=== PATIENT | male | born 1965 | race Caucasian/White ===

== ENCOUNTER 2019-02-13 15:06 | Inpatient (IN) | payer BC ==
--- NOTE | 2019-02-13 15:47 | ER Document Report ---
ED Medical Screen (RME) - General Chief Complaint: Abdominal Pain Stated Complaint: ABDOMINAL PAIN Time Seen by Provider: 02/13/19 15:38 Primary Care Provider: JUSTIN HUERTA [Primary Care Provider] - Follow up as needed Mode of Arrival: Ambulatory Information source: Patient Notes: 53-year-old male presented to ED for gallstones with obstructions to the bile ducts. He did get a ultrasound done with an ultrasound gallstones. Dates he has been nauseated but has not vomited. He went to his primary care doctor they madeline blood and did the ultrasound and then sent him to the emergency room. I have greeted and performed a rapid initial assessment of this patient. A comprehensive ED assessment and evaluation of the patient, analysis of test results and completion of medical decision making process will be conducted by an additional ED providers. - Related Data Allergies/Adverse Reactions: Penicillins Allergy (Verified 02/13/19 15:36) Physical Exam - Vital signs Vitals: Temp Pulse Resp BP Pulse Ox 98.6 F 89 16 140/82 H 100 02/13/19 15:28 02/13/19 15:28 02/13/19 15:28 02/13/19 15:28 02/13/19 15:28 Course - Vital Signs Vital signs: Temp Pulse Resp BP Pulse Ox 98.6 F 89 16 140/82 H 100 02/13/19 15:28 02/13/19 15:28 02/13/19 15:28 02/13/19 15:28 02/13/19 15:28 Doctor's Discharge - Discharge Referrals: JUSTIN HUERTA [Primary Care Provider] - Follow up as needed
[2019-02-13] MEDS ORDERED: ONDANSETRON 4 MG TAB.RAPDIS PO ONE (15:49)
[2019-02-13] MEDS ORDERED: ONDANSETRON 4 MG TAB.RAPDIS ONE (15:55)
[2019-02-13 16:23] LABS: ABSOLUTE EOSINOPHILS # (AUTO) 0.1 10^3/uL (0.0-0.6); ABSOLUTE LYMPHOCYTES (AUTO) 1.5 10^3/uL (0.5-4.7); ABSOLUTE MONOCYTES (AUTO) 0.9 10^3/uL (0.1-1.4); ABSOLUTE NEUT (AUTO) 7.6 10^3/uL (1.7-8.2); BASOPHILS % (AUTO) 0.4 % (0-2); EOSINOPHILS % (AUTO) 0.6 % (0-6); HEMATOCRIT 45.1 % (37.9-51.0); HEMOGLOBIN 15.6 g/dL (13.5-17.0); LYMPHOCYTES % (AUTO) 14.6 % (13-45); MEAN CORPUSCULAR HEMOGLOBIN 30.7 pg (27.0-33.4); MEAN CORPUSCULAR HGB CONC 34.6 g/dL (32.0-36.0); MEAN CORPUSCULAR VOLUME 89 fl (80-97); MONOCYTES % (AUTO) 9.3 % (3-13); PLATELET COUNT 252 10^3/uL (150-450); RED BLOOD COUNT 5.08 10^6/uL (4.35-5.55); RED CELL DISTRIBUTION WIDTH 12.5 % (11.5-14.0); SEGMENTED NEUTROPHILS % (AUTO) 75.1 % (42-78); TOTAL CELLS COUNTED % (AUTO) 100 %; WHITE BLOOD COUNT 10.1 10^3/uL (4.0-10.5)
[2019-02-13 16:34] LABS: APPEARANCE,URINE CLEAR; BILIRUBIN,URINE NEGATIVE (NEGATIVE); COLOR,URINE YELLOW; GLUCOSE, URINE 150 mg/dL (NEGATIVE); KETONES,URINE 20 mg/dL (NEGATIVE); PROTEIN,URINE NEGATIVE (NEGATIVE); URINE SPECIFIC GRAVITY 1.026; UROBILINOGEN,URINE NEGATIVE mg/dL (<2.0)
[2019-02-13 16:41] LABS: ALBUMIN 4.7 g/dL (3.5-5.0); ALKALINE PHOSPHATASE 47 U/L (38-126); ANION GAP 14 (5-19); ASPARTATE AMINO TRANSFERASE 27 U/L (17-59); BILIRUBIN,DIRECT 0.1 mg/dL (0.0-0.4); BLOOD UREA NITROGEN 20 mg/dL (7-20); CARBON DIOXIDE 26 mmol/L (22-30); CHLORIDE 100 mmol/L (98-107); GLUCOSE 140 mg/dL (75-110); TOTAL PROTEIN 7.9 g/dL (6.3-8.2)
[2019-02-13] MEDS ORDERED: MORPHINE SULFATE 10 MG/ML INJ IV ONE (17:37)
[2019-02-13] MEDS ORDERED: NORMAL SALINE 1000 ML 1,000 ML IV ONE (17:45)
--- NOTE | 2019-02-13 17:53 | ER Document Report ---
ED General - General Chief Complaint: Abdominal Pain Stated Complaint: ABDOMINAL PAIN Time Seen by Provider: 02/13/19 15:38 Primary Care Provider: JUSTIN HUERTA [Primary Care Provider] - Follow up as needed Mode of Arrival: Ambulatory Information source: Patient, Relative TRAVEL OUTSIDE OF THE [place] IN LAST 30 DAYS: No - HPI Notes: 53-year-old male with history of mild hypertension and gout with a chief complaint of abdominal pain and nausea. Patient was in his usual state of health when he became ill 4 days ago. Since then he has had some anorexia and right upper quadrant abdominal pain associated with nausea but no vomiting. He denies fever chills. He saw his primary care provider earlier today and I suspected a problem with his gallbladder and sent for an outpatient ultrasound. This showed gallbladder wall thickening and a solitary stone which appears to be impacted in the gallbladder neck. He was referred to the emergency department. Presently describes his pain as 8/10. He had taken 1 Percocet which was a dministered to him at his primary care provider's office earlier. Onset 4 days ago. Duration persistent. Quality dull and aching. Location right upper quadrant abdomen. Radiation to right infrascapular area. Precipitating factors none area Relieving factors none. Severity 8/10. Pertinent prior history: No known prior history of gallbladder or biliary tract disease. No prior major surgery. - Related Data Allergies/Adverse Reactions: Penicillins Allergy (Verified 02/13/19 15:36) Past Medical History - General Information source: Patient - Social History Smoking Status: Never Smoker Chew tobacco use (# tins/day): No Frequency of alcohol use: Occasional Drug Abuse: None Family History: Other - Daughter with a history of gallstones. Patient has suicidal ideation: No Patient has homicidal ideation: No - Past Medical History Cardiac Medical History: Reports: Hx Hypertension Other: History of gout Review of Systems - Review of Systems Notes: Constitutional: Negative for fever. HENT: Negative for sore throat. Eyes: Negative for visual changes. Cardiovascular: Negative for chest pain. Respiratory: Negative for shortness of breath. Gastrointestinal: As per HPI. Genitourinary: Negative for dysuria. Musculoskeletal: Negative for back pain. Skin: Negative for rash. Neurological: Negative for headaches, weakness or numbness. 10 point ROS negative except as marked above and in HPI. Physical Exam - Vital signs Vitals: Temp Pulse Resp BP Pulse Ox 98.6 F 89 16 140/82 H 100 02/13/19 15:28 02/13/19 15:28 02/13/19 15:28 02/13/19 15:28 02/13/19 15:28 Notes: GENERAL: Well-developed well-nourished appearing in moderate discomfort. SKIN: Good turgor no rashes. HEAD: Normocephalic atraumatic. EYES: PERRLA. Conjunctivae and sclerae clear. EARS: CANALS AND TMS CLEAR. NOSE: CLEAR. MOUTH: Moist mucosa. Good dentition. No stridor or edema. No drooling. NECK: Supple. No masses or thyromegaly. No adenopathy. Carotids 2+ without bruits. No JVD. BACK: Symmetrical without tenderness. CHEST: Respirations unlabored. Breath sounds clear and symmetrical. HEART: Regular rhythm. No murmur gallop or rub. ABDOMEN: Soft mild tenderness of right upper quadrant without masses, organomegaly or rebound. Bowel sounds normally active. No bruits. GENITALIA: Deferred. EXTREMITIES: No edema. No calf tenderness. Cap refill less than 1.5 seconds. Dorsalis pedis and posterior tibial pulses 3+ and symmetrical. NEUROLOGICAL: GCS 15. Alert and oriented x3. Normal gait. Fluent speech. Cranial nerves II through XII intact. Sensorimotor and cerebellar normal. Normal tone. Course - Re-evaluation Re-evalutation: 02/13/19 17:52 Gallbladder ultrasound suggested this man has cystitis and this fits clinically. He has a history of penicillin allergy. I started him on IV Cipro and metronidazole. We will give him some morphine for pain keep him n.p.o. with administration of IV normal saline. Surgical consultation requested with Dr. Garzon. - Vital Signs Vital signs: Temp Pulse Resp BP Pulse Ox 98.6 F 89 16 140/82 H 100 02/13/19 15:28 02/13/19 15:28 02/13/19 15:28 02/13/19 15:28 02/13/19 15:28 - Laboratory Result Diagrams: 02/13/19 16:04 02/13/19 16:04 Laboratory results interpreted by me: 02/13/19 02/13/19 16:04 16:04 Creatinine 1.29 H Est GFR (MDRD) Non-Af 58 L Glucose 140 H Urine Glucose (UA) 150 H Urine Ketones 20 H - Diagnostic Test Radiology reviewed: Reports reviewed Discharge - Discharge Clinical Impression: Acute cholecystitis due to biliary calculus Condition: Good Disposition: ADMITTED INPATIENT Admitting Provider: Surgicalist Unit Admitted: Surgical Floor Referrals: LOCALMD,NO [Primary Care Provider] - Follow up as needed
[2019-02-13] MEDS ORDERED: CIPROFLOXACIN 400 MG/D5W RTU 400 MG/200 ML RTUPB IV SCH (18:00)
[2019-02-13] MEDS ORDERED: METRONIDAZOLE 500 MG/NS RTU 500 MG/100 ML RTUPB IV ONE (18:00)
[2019-02-13] MEDS ORDERED: ONDANSETRON HCL INJ/PF 4 MG/2 ML SDV IV PRN (18:30)
[2019-02-13] MEDS ORDERED: DEXTROSE 5%-LACTATED RINGERS 1,000 ML IV PRN (18:30)
--- NOTE | 2019-02-13 18:30 | PDOC H&P ---
History of Present Illness Admission Date/PCP: 02/13/19 18:12 WILDER BOOGIE Patient complains of: Abdominal pains History of Present Illness: STEFFANY SEO is a 53 year old male with known hypertension started complaining of right upper quadrant pains about 3 days ago after a fatty meal. Pains primarily along the right lower quadrant but goes to the upper abdomen into the back with some nausea. He went to urgent care center this morning and sent for an ultrasound which showed gallstones with evidence of acute cholecystitis. Patient denies any fever nor chills. Past Medical History Cardiac Medical History: Reports: Hypertension Past Surgical History Past Surgical History: Reports: None Social History Smoking Status: Never Smoker Electronic Cigarette use?: No Family History Family History: Other - Daughter with a history of gallstones. Parental Family History Reviewed: Yes Children Family History Reviewed: No Sibling(s) Family History Reviewed.: No Medication/Allergy Home Medications: Febuxostat [Uloric 80 mg Tablet] 80 mg PO BID 02/13/19 Lisinopril [Prinivil 5 mg Tablet] 5 mg PO DAILY 02/13/19 Allergies/Adverse Reactions: Penicillins Allergy (Verified 02/13/19 15:36) Review of Systems Constitutional: PRESENT: as per HPI Eyes: PRESENT: other - No visual or hearing changes Cardiovascular: PRESENT: other - No chest pains nor cough Gastrointestinal: PRESENT: abdominal pain, nausea Physical Exam Vital Signs: Temp Pulse Resp BP Pulse Ox 98.6 F 89 16 140/82 H 100 02/13/19 15:28 02/13/19 15:28 02/13/19 15:28 02/13/19 15:28 02/13/19 15:28 Intake & Output 02/12/19 02/13/19 02/14/19 06:59 06:59 06:59 Weight 95.5 kg General appearance: PRESENT: mild distress Head exam: PRESENT: atraumatic Mouth exam: PRESENT: moist Neck exam: PRESENT: full ROM Respiratory exam: PRESENT: clear to auscultation tiki Cardiovascular exam: PRESENT: RRR Pulses: PRESENT: normal radial pulses Vascular exam: PRESENT: normal capillary refill GI/Abdominal exam: PRESENT: soft, tenderness - Right upper quadrant Rectal exam: PRESENT: deferred Neurological exam: PRESENT: alert, oriented to person, oriented to place, oriented to time, oriented to situation Psychiatric exam: PRESENT: appropriate affect Skin exam: PRESENT: normal color, warm Results Laboratory Results: 02/13/19 16:04 02/13/19 16:04 02/13/19 02/13/19 02/13/19 16:04 16:04 16:04 WBC 10.1 RBC 5.08 Hgb 15.6 Hct 45.1 MCV 89 MCH 30.7 MCHC 34.6 RDW 12.5 Plt Count 252 Seg Neutrophils % 75.1 Sodium 140.1 Potassium 4.0 Chloride 100 Carbon Dioxide 26 Anion Gap 14 BUN 20 Creatinine 1.29 H Est GFR ( Amer) > 60 Glucose 140 H Calcium 10.0 Total Bilirubin 1.0 AST 27 Alkaline Phosphatase 47 Total Protein 7.9 Albumin 4.7 Lipase 149.8 Urine Color YELLOW Urine Appearance CLEAR Urine pH 6.0 Ur Specific [place] 1.026 Urine Protein NEGATIVE Urine Glucose (UA) 150 H Urine Ketones 20 H Urine Blood NEGATIVE Urine RBC (Auto) 1 Assessment & Plan - Diagnosis (1) Acute cholecystitis Is this a current diagnosis for this admission?: Yes (2) Cholelithiasis Is this a current diagnosis for this admission?: Yes (3) Hypertension Is this a current diagnosis for this admission?: Yes - Time Time Spent: 30 to 50 Minutes - Inpatient Certification Medical Necessity: Need For IV Fluids, Need for Pain Control, Need for IV Antibiotics, Need for Surgery - Plan Summary Plan Summary: 53-year-old male with right upper quadrant pains and ultrasound noted gallstones with acute cholecystitis. Denies any fever no chills. He is tender in the right upper quadrant. He has mild hypertension. Plans: Start IV antibiotics and keep n.p.o. from midnight For laparoscopic cholecystectomy tomorrow
--- NOTE | 2019-02-13 18:48 | RADIOLOGY REPORT (SQ) ---
EXAM DESCRIPTION: U/S ABDOMEN LIMITED W/O DOP COMPLETED DATE/TIME: 02/13/2019 5:37 pm REASON FOR STUDY: gallstones COMPARISON: None. TECHNIQUE: Dynamic and static grayscale images acquired of the abdomen and recorded on PACS. Additio quinton selected color Doppler and spectral images recorded. LIMITATIONS: None. FINDINGS: PANCREAS: No masses. Visualized pancreatic duct normal caliber. LIVER: Diffuse increased echogenicity coarsened echotexture. LIVER VASCULATURE: Normal directional flow of the main portal vein and hepatic veins. GALLBLADDER: Several shadowing gallstones the largest of which measures 1.6 cm at the neck. Positive sonographic Austin's. Normal wall thickness. No pericholecystic fluid. ULTRASOUND-DETECTED AUSTIN'S SIGN: Negative. INTRAHEPATIC DUCTS AND COMMON DUCT: CBD and intrahepatic ducts normal caliber. No filling defects. INFERIOR VENA CAVA: Normal flow. AORTA: No aneurysm. RIGHT KIDNEY: Normal size. Normal echogenicity. No solid or suspicious masses. No hydronephrosis. No calcifications. PERITONEAL AND RIGHT PLEURAL SPACE: No ascites or effusions. OTHER: No other significant findings. IMPRESSION: Cholelithiasis. Cannot exclude acute cholecystitis due to a positive sonographic Austin 's. Hepatic steatosis. TECHNICAL DOCUMENTATION: JOB ID: [id number] [employer]- All Rights Reserved Reading location - IP/workstation name: [email or web address]
--- NOTE | 2019-02-13 18:49 | RADIOLOGY REPORT (SQ) ---
EXAM DESCRIPTION: CHEST SINGLE VIEW COMPLETED DATE/TIME: 02/13/2019 6:15 pm REASON FOR STUDY: preop COMPARISON: None. EXAM PARAMETERS: NUMBER OF VIEWS: One view. TECHNIQUE: Single frontal radiographic view of the chest acquired. RADIATION DOSE: NA LIMITATIONS: None. FINDINGS: LUNGS AND PLEURA: No opacities, masses or pneumothorax. No pleural effusion. MEDIASTINUM AND HILAR STRUCTURES: No masses. Contour normal. HEART AND VASCULAR STRUCTURES: Heart normal in size. Normal vasculature. BONES: No acute findings. HARDWARE: None in the chest. OTHER: No other significant finding. IMPRESSION: NO ACUTE RADIOGRAPHIC FINDING IN THE CHEST. TECHNICAL DOCUMENTATION: JOB ID: [id number] [employer]- All Rights Reserved Reading location - IP/workstation name: [email or web address]
[2019-02-13] MEDS: METRONIDAZOLE 500 MG/NS RTU 500 MG/100 ML RTUPB IV SCH (21:46)
[2019-02-13] MEDS ORDERED: METRONIDAZOLE 500 MG/NS RTU 250 MG in CONTAINER,EMPTY 1 EACH IV SCH ×2 (22:00)
[2019-02-13] MEDS: HYDROMORPHONE HCL INJ/PF 2 MG/ML AMPULE IV PRN (22:00)
[2019-02-13] MEDS: CIPROFLOXACIN 400 MG/D5W RTU 400 MG/200 ML RTUPB IV SCH (23:01)
--- NOTE | 2019-02-13 23:37 | EKG REPORT ---
SEVERITY:- ABNORMAL ECG - SINUS RHYTHM FIRST DEGREE AV BLOCK BORDERLINE INFERIOR Q WAVES : Confirmed by: Abi Chavez 13-Feb-2019 23:36:08
[2019-02-14] MEDS: HYDROMORPHONE HCL INJ/PF 2 MG/ML AMPULE IV PRN ×2 (02:05→06:23)
[2019-02-14] MEDS: METRONIDAZOLE 500 MG/NS RTU 500 MG/100 ML RTUPB IV SCH ×3 (06:22→21:11)
[2019-02-14] MEDS: CIPROFLOXACIN 400 MG/D5W RTU 400 MG/200 ML RTUPB IV SCH ×2 (09:25→21:10)
[2019-02-14] MEDS ORDERED: BUPIVACAINE HCL 0.5 % INJ/PF 30 ML SDV ONE (11:45)
[2019-02-14] MEDS ORDERED: MIDAZOLAM 2 MG/2 ML INJ ONE (12:05)
[2019-02-14] MEDS ORDERED: HYDROMORPHONE HCL INJ/PF 2 MG/ML AMPULE ONE ×2 (12:05→15:07)
[2019-02-14] MEDS ORDERED: PROPOFOL INJ 200 MG/20 ML VIAL IV ONE ×2 (12:05→16:25)
[2019-02-14] MEDS ORDERED: MEPERIDINE HCL/PF INJ 25 MG/1 ML DISP.SYRIN IV PRN (12:45)
[2019-02-14] MEDS ORDERED: OXYCODONE-ACETAMINOPHEN 5-325 MG TABLET PO PRN ×2 (12:45)
[2019-02-14] MEDS ORDERED: DIPHENHYDRAMINE HCL 50 MG/ML VIAL IV PRN (12:45)
[2019-02-14] MEDS ORDERED: ONDANSETRON HCL INJ/PF 4 MG/2 ML SDV IV PRN ×2 (12:45→19:00)
[2019-02-14] MEDS ORDERED: PROMETHAZINE HCL INJ 25 MG/1 ML VIAL IV PRN ×2 (12:45)
[2019-02-14] MEDS ORDERED: FENTANYL CITRATE INJ/PF 100 MCG/2 ML AMPUL IV PRN ×3 (12:45)
[2019-02-14] MEDS ORDERED: ROCURONIUM BROMIDE INJ 50 MG/5 ML VIAL IV ONE (13:32)
[2019-02-14] MEDS ORDERED: LIDOCAINE 2% INJ-PF (20 MG/ML) 2 ML AMPUL ONE (13:32)
[2019-02-14] MEDS ORDERED: DEXAMETHASONE SOD PHOSPHATE INJ 4 MG/1 ML VIAL ONE (13:32)
[2019-02-14] MEDS ORDERED: GLYCOPYRROLATE 1 MG/5 ML VIAL ONE (13:32)
[2019-02-14] MEDS ORDERED: ONDANSETRON HCL INJ/PF 4 MG/2 ML SDV ONE ×2 (13:32→16:25)
[2019-02-14] MEDS ORDERED: NEOSTIGMINE METHYLSULFATE 10 MG/10 ML VIAL ONE (13:32)
[2019-02-14] MEDS ORDERED: METOCLOPRAMIDE HCL INJ/PF 10 MG/2 ML SDV ONE (13:32)
[2019-02-14 15:25] LABS: HEMATOCRIT 39.3 % (37.9-51.0); MEAN CORPUSCULAR HEMOGLOBIN 30.5 pg (27.0-33.4); MEAN CORPUSCULAR HGB CONC 34.3 g/dL (32.0-36.0); MEAN CORPUSCULAR VOLUME 89 fl (80-97); PLATELET COUNT 236 10^3/uL (150-450); RED BLOOD COUNT 4.42 10^6/uL (4.35-5.55); RED CELL DISTRIBUTION WIDTH 12.3 % (11.5-14.0); WHITE BLOOD COUNT 11.1 10^3/uL (4.0-10.5)
[2019-02-14 15:33] LABS: HEMOGLOBIN 13.5 g/dL (13.5-17.0)
[2019-02-14] MEDS ORDERED: FUROSEMIDE INJ/PF 40 MG/4 ML SDV ONE (16:24)
--- NOTE | 2019-02-14 18:56 | Operative Report ---
Nonrecallable Operative Report DATE OF SURGERY: 02/14/19 PREOPERATIVE DIAGNOSIS: Symptomatic cholelithiasis POSTOPERATIVE DIAGNOSIS: Symptomatic cholelithiasis, acute on chronic status, bile leak of the right hepatic duct OPERATION: Laparoscopic cholecystectomy, intraoperative cholangiogram SURGEON: GASTON LUNDY ANESTHESIA: Local - 20 mils of 1% lidocaine TISSUE REMOVED OR ALTERED: Gallbladder COMPLICATIONS: Bile leak of the right hepatic duct ESTIMATED BLOOD LOSS: Minimal less than 10 mL INTRAOPERATIVE FINDINGS: Severely acute on chronic inflamed gallbladder acute on chronic findings, purulent gallbladder content PROCEDURE: The procedure was done in the operating room. The patient was placed in a supine position, general anesthesia induced by endotracheal intubation, the abdomen was prepped and draped in usual fashion. An incision was made just above the umbilicus with a #15 blade, the skin was tented with towel clips and a 5 mm port with Optiview adapter and scope was inserted through the abdominal wall into the peritoneal cavity. CO2 pneumoperitoneum was obtained, under direct visualization a 12 mm port was inserted in the epigastrium and to 5 mm ports were placed in the right lateral quadrant of the abdomen under direct visualization. The patient was placed in steep reverse Trendelenburg position, the right side was elevated, the gallbladder fundus was grasped and the gallbladder was elevated and retroflexed; the gallbladder appeared to have acute on chronic inflammation, it was taken, pale, with the greater omentum adherent to it. This was peeled off and divided with cautery until the entire gallbladder was exposed. Do to the thickening of the gallbladder wall, this could not be grasped safely. Therefore, the gallbladder was emptied with a laparoscopic needle connected to a 60 cc syringe and about 30 mL of dark, purulent, bile content were aspirated from the gallbladder. The the cystic neck was identified, grasped, and pulled anterior to the patient's right with exposure of the triangle of Calot. The critical view of safety was obtained by dividing the peritoneal attachments of the gallbladder body both medially and laterally with a hook cautery. The dissection was extended toward the gallbladder body on either side. When this was accomplished, the hook cautery dissection was continued toward the cystic neck which was not fully identified because of the amount of inflammation. An opening was then obtained posterior to the cystic duct and neck which was enlarged with a peanut dissector and with a right angle dissector. Once the critical view of safety was obtained, an attempt was made to dissect the cystic duct with a hook cautery. This dissection could not be completed because of the large amount of inflammation surrounding the cystic duct; however, a space was developed between the cystic duct and cystic artery with a right angle dissector just below the cystic neck. This was then divided with stapler because of the thickening of the tissues. Following this a small amount of leak of bile was noted from the proximal stump of the tissue. An intraoperative cholangiogram was performed by inserting a cholangiogram catheter through the epigastric port into the abdominal cavity, the small opening noted in the tissue following division of the cystic duct was cannulated with a cholangiogram catheter. This was advanced through the opening, the tip balloon was inflated, 50% diluted radiographic contrast was t hen slowly injected through the catheter into the cystic, while live recorded fluoroscopy was obtained. The fluoroscopic cholangiogram images were interpreted, no contrast was noted into the common bile duct or left hepatic duct. Due to these suspicious findings, intraoperative consultation with Dr. Couch was obtained and he will dictate his portion of the procedure. The patient was left intubated under general anesthesia, the abdomen was left prepped and draped, and additional diagnostic procedures and surgery were performed shortly after.
--- NOTE | 2019-02-14 19:11 | PDOC PROGRESS REPORT ---
Subjective Progress Note for:: 02/14/19 Subjective:: Feeling a bit groggy. Reason For Visit: ACUTE CHOLECYSTITIS,CHOLELITHIASIS,HYPERTENSION Physical Exam Vital Signs: Temp Pulse Resp BP Pulse Ox 97.5 F 81 12 126/82 H 99 02/14/19 18:31 02/14/19 18:31 02/14/19 18:31 02/14/19 18:31 02/14/19 18:31 Intake & Output 02/13/19 02/14/19 02/15/19 06:59 06:59 06:59 Intake Total 1024 4700 Output Total 750 Balance 1024 3950 Weight 90.7 kg General appearance: PRESENT: no acute distress, cooperative, well-developed, well-nourished Head exam: PRESENT: atraumatic, normocephalic Additional Comments: NG present. Eye exam: PRESENT: conjunctiva pink, EOMI, PERRLA. ABSENT: scleral icterus Ear exam: PRESENT: normal external ear exam Mouth exam: PRESENT: moist, tongue midline Respiratory exam: PRESENT: clear to auscultation tiki, decreased breath sounds, unlabored Cardiovascular exam: PRESENT: RRR. ABSENT: diastolic murmur, rubs, systolic murmur Vascular exam: PRESENT: normal capillary refill GI/Abdominal exam: PRESENT: normal bowel sounds, soft. ABSENT: distended, guarding, mass, organolmegaly, rebound, tenderness Additonal comments: JENNIFER draining serosanguinous fluid. Insicions dressed sterilly Extremities exam: PRESENT: full ROM Musculoskeletal exam: PRESENT: normal inspection Neurological exam: PRESENT: alert, awake, oriented to person, oriented to place, oriented to time, oriented to situation, CN II-XII grossly intact. ABSENT: motor sensory deficit Psychiatric exam: PRESENT: appropriate affect, normal mood. ABSENT: homicidal ideation, suicidal ideation Skin exam: PRESENT: dry, intact, warm. ABSENT: cyanosis, rash Results Laboratory Results: 02/14/19 15:11 02/13/19 16:04 02/14/19 02/14/19 15:11 15:11 WBC 11.1 H RBC 4.42 Hgb 13.5 D Hct 39.3 MCV 89 MCH 30.5 MCHC 34.3 RDW 12.3 Plt Count 236 Blood Type O NEGATIVE Antibody Screen NEGATIVE Impressions: Abdomen Ultrasound 02/13/19 15:50 IMPRESSION: Cholelithiasis. Cannot exclude acute cholecystitis due to a positive sonographic Austin's. Hepatic steatosis. Chest X-Ray 02/13/19 18:00 IMPRESSION: NO ACUTE RADIOGRAPHIC FINDING IN THE CHEST. Assessment & Plan - Diagnosis (1) Acute cholecystitis due to biliary calculus Is this a current diagnosis for this admission?: Yes Plan: He has undergone a cholecystectomy. During the cholangiography he suffered a bile leak requiring open repair. He underwent nearly 6 hours of surgery and the original post-op plan was to leave him intubated overnight. However he he much better than expected. He was taken to the ICU and after an appropriate recovery time and time to ascertain cardiovascular and surgical stability he was sent to the regular surgical floor. I have had a conversation with him and informed him of the bile leak and need for NG. (2) Hypertension Qualifiers: Hypertension type: essential hypertension Qualified Code(s): I10 - Essential (primary) hypertension Is this a current diagnosis for this admission?: Yes Plan: Controlled - Time Time Spent with patient: 25-34 minutes Level of Care: MEDICAL Medications reviewed and adjusted accordingly: Yes Anticipated discharge: Home Within: within 72 hours - Inpatient Certification Based on my medical assessment, after consideration of the patient's comorbidities, presenting symptoms, or acuity I expect that the services needed warrant INPATIENT care.: Yes I certify that my determination is in accordance with my understanding of Medicare's requirements for reasonable and necessary INPATIENT services [42 CFR 412.3e].: Yes Medical Necessity: Failure to Improve With Outpatient Therapy, Need For IV Fluids, Need for Surgery, Risk of Complication if Not Cared For in Hospital
[2019-02-14] MEDS ORDERED: PHARMACY COMMUNICATION ORDER MC NR (19:15)
[2019-02-14] MEDS ORDERED: METRONIDAZOLE 500 MG/NS RTU 500 MG/100 ML RTUPB IV SCH (19:30)
[2019-02-14] MEDS: ACETAMINOPHEN 1,000 MG/100 ML RTUPB IV SCH (20:51)
[2019-02-14] MEDS: MORPHINE SULFATE 10 MG/ML INJ IV PRN ×2 (20:52→23:10)
[2019-02-14] MEDS: FAMOTIDINE INJ/PF 20 MG/2 ML SDV IV SCH (21:11)
[2019-02-14] MEDS: NORMAL SALINE 1000 ML 1,000 ML IV PRN (21:17)
[2019-02-15] MEDS: MORPHINE SULFATE 10 MG/ML INJ IV PRN ×5 (01:42→20:07)
[2019-02-15] MEDS: ACETAMINOPHEN 1,000 MG/100 ML RTUPB IV SCH ×4 (03:00→20:04)
[2019-02-15] MEDS: METRONIDAZOLE 500 MG/NS RTU 500 MG/100 ML RTUPB IV SCH ×3 (05:19→21:34)
[2019-02-15] MEDS: FAMOTIDINE INJ/PF 20 MG/2 ML SDV IV SCH ×2 (05:21→17:15)
[2019-02-15 06:45] LABS: HEMATOCRIT 36.4 % (37.9-51.0); HEMOGLOBIN 12.5 g/dL (13.5-17.0); MEAN CORPUSCULAR HEMOGLOBIN 30.5 pg (27.0-33.4); MEAN CORPUSCULAR HGB CONC 34.5 g/dL (32.0-36.0); MEAN CORPUSCULAR VOLUME 88 fl (80-97); PLATELET COUNT 203 10^3/uL (150-450); RED BLOOD COUNT 4.12 10^6/uL (4.35-5.55); RED CELL DISTRIBUTION WIDTH 12.5 % (11.5-14.0); WHITE BLOOD COUNT 13.9 10^3/uL (4.0-10.5)
[2019-02-15 07:00] LABS: ALBUMIN 3.2 g/dL (3.5-5.0); ALKALINE PHOSPHATASE 51 U/L (38-126); ANION GAP 7 (5-19); ASPARTATE AMINO TRANSFERASE 439 U/L (17-59); BILIRUBIN,DIRECT 0.3 mg/dL (0.0-0.4); BILIRUBIN,TOTAL 0.8 mg/dL (0.2-1.3); BLOOD UREA NITROGEN 17 mg/dL (7-20); CALCIUM 8.4 mg/dL (8.4-10.2); CARBON DIOXIDE 28 mmol/L (22-30); CHLORIDE 100 mmol/L (98-107); GLUCOSE 119 mg/dL (75-110); POTASSIUM 4.6 mmol/L (3.6-5.0); TOTAL PROTEIN 5.8 g/dL (6.3-8.2)
--- NOTE | 2019-02-15 08:12 | RADIOLOGY REPORT (SQ) ---
EXAM DESCRIPTION: NO CHG FLUORO COMPLETE DATE/TIME: 02/14/2019 6:14 pm REASON FOR STUDY: IOC FINDINGS: Please see combined report for performance of procedure and radiologic supervision and int erpretation. IMPRESSION: Please see combined report for performance of procedure and radiologic supervision and i nterpretation. Reading location - IP/workstation name: [email or web address]
--- NOTE | 2019-02-15 08:12 | RADIOLOGY REPORT (SQ) ---
EXAM DESCRIPTION: CHOLANGIOGRAM OPERATIVE COMPLETED DATE/TIME: 02/14/2019 6:14 pm REASON FOR STUDY: IOC COMPARISON: None. FLUOROSCOPY TIME: 4.1 minutes Spot images saved to PACS. TECHNIQUE: Intra-operative images acquired during surgical procedure to evaluate progress. NUMBER OF IMAGES: 5 LIMITATIONS: None. FINDINGS: Fluoroscopy was provided for intraoperative procedure. Please refer to the operative repo rt further discussion. IMPRESSION: IMAGE(S) OBTAINED DURING PROCEDURE. COMMENT: Quality ID [id number]: Final reports for procedures using fluoroscopy that document radiation exp osure indices, or exposure time and number of fluorographic images (if radiation exposure indices are not available) Please consult full operative report of the attending physician for description of the procedure. TECHNICAL DOCUMENTATION: JOB ID: [id number] [employer]- All Rights Reserved Reading location - IP/workstation name: [email or web address]
--- NOTE | 2019-02-15 08:13 | RADIOLOGY REPORT (SQ) ---
EXAM DESCRIPTION: KUB/ABDOMEN (SINGLE VIEW) COMPLETED DATE/TIME: 02/14/2019 7:52 pm REASON FOR STUDY: Check Placement of NG Tube COMPARISON: None. NUMBER OF VIEWS: One view. TECHNIQUE: Supine radiographic image of the abdomen acquired. LIMITATIONS: None. FINDINGS: BOWEL GAS PATTERN: Gas pattern is nonobstructive. There is contrast throughout the descen ding colon and sigmoid colon. NG tube is in place. CALCIFICATIONS: No suspicious calcifications. SOFT TISSUES: No gross mass or suggestion of organomegaly. HARDWARE: There are surgical clips extending from the right flank across the midline. Drainage tube is in place. BONES: No acute fracture. No worrisome bone lesions. OTHER: No other significant finding. IMPRESSION: Postsurgical changes. NG tube is coiled in the left upper quadrant most likely stomach. Gas pattern is nonspecific. TECHNICAL DOCUMENTATION: JOB ID: [id number] [employer]- All Rights Reserved Reading location - IP/workstation name: [email or web address]
[2019-02-15] MEDS: ENOXAPARIN SODIUM INJ 40 MG/0.4 ML DISP.SYRIN SUBCUT SCH (08:49)
--- NOTE | 2019-02-15 09:47 | Operative Report ---
Nonrecallable Operative Report DATE OF SURGERY: 02/14/19 PREOPERATIVE DIAGNOSIS: bile duct injury POSTOPERATIVE DIAGNOSIS: right hepatic bile duct injury OPERATION: hepaticojejunostomy SURGEON: ALESSIA RILEY 1ST WHITE LEAD GRINDER: GASTON LUNDY ANESTHESIA: GA TISSUE REMOVED OR ALTERED: none COMPLICATIONS: left hepatic duct injury INTRAOPERATIVE FINDINGS: see dictation PROCEDURE: I was called into the room by Dr. Lundy who was performing a cholecystectomy on Dr. Lundy had performed a cholangiogram through what he felt was the stump of the cystic duct and there was no filling of the right hepatic duct therefore there was suspicion that there was a right hepatic duct injury. A Gillis catheter was placed and we proceeded with Miya incision in the right upper quadrant. Using a 10 blade an incision was made from the epigastric port site along the inferior costal margin. Using Bovie cautery we divided the rectus muscle and posterior fashion gain access to the upper abdomen. The falciform ligament was then divided between Padilla clamps and 0 silk ligatures. The Omni retractor was placed for costal retraction. On initial inspection there were number of cecile in the campos hepatis from the Endo SALOME there was some bile leakage from the middle of the staple line. We began our dissection of the bile duct with blunt and sharp dissection to identify the distal end of the bile duct once this was accomplished we slung the bile duct with a vessel loop for retraction it was noted that the patient had a fairly low bifurcation of the right and left hepatic ducts. As we dissected up proximally we noted that there was an injury to the right hepatic duct and that the left hepatic duct appeared to be intact. I therefore placed a cholangiocatheter in the distal bile duct with a Vesseloops long below that for obstruction of the distal bile duct and then is instilled Omnipaque to obtain a cholangiogram which slid up the left hepatic duct well with no evidence of injury by the right hepatic duct did not fill. We therefore retracted the liver cephalad and then completed the cholecystectomy by taking the gallbladder down in a retrograde fashion with Bovie cautery removing the gallbladder obtaining hemostasis of the liver bed with Bovie cautery. Once this was accomplished we get better visualization of the right hepatic duct there was a complete transection of that. The right hepatic duct stump was visualized with small approximately 2-1/2 to 3 mm in diameter and only admitted a very small bakes dilator. It was not completely divided from the distal portion of the right hepatic duct there was still a slight small sliver of tissue that was holding it connected to the common bile duct. We use this for retraction. We cleaned up the edges of the stump of the hepatic duct. And then turned attention to the ligament of Treitz. A point was picked distal from the ligament of Treitz about 30 cm where we divided the small bowel with a SALOME stapler the mesentery between Padilla clamps and 0 silk ties. I then created a defect in the transverse mesocolon and brought the Seferino limb up to the right upper quadrant to lie close to the campos hepatis. We reconnected the distal limb to the alimentary limb about 40 cm distal to the end of the Seferino limb. We closed the mesenteric defect with interrupted 3-0 silk sutures. We then turned attention to the right upper quadrant. A hepaticojejunostomy was then accomplished between the stump of the right duct and the Esferino limb using 3-0 PDS sutures. 5-0 sutures were unavailable. This was done over a small 5 Burkinan red rubber Coy catheter. Once the anastomosis was completed I remove the catheter through a small enterotomy in the distal limb as it was concerning that the catheter would not be able to be removed at a later date and in the hepatic duct was so small that the catheter was too tight to self eliminate. We closed the small enterotomy to remove the catheter from with interrupted 2-0 silk. Once this was completed we irrigated the abdominal cavity normal saline suctioned dry hemostasis was intact. A Hank-Bobo drain was left in the right upper quadrant in the campos hepatis and brought out through a stab wound in the right abdominal wall. The hepatic anastomosis was then sprayed with Tisseel tissue sealant. The Miya incision was then closed in 2 layers using running 0 PDS suture in the posterior sheath and then in the anterior sheath. The skin was closed with standard skin clips. Estimated blood loss for this procedure was approximately 200 cc sponge needle counts were correct x2 the patient was awakened in the operating room extubated transferred recovery in stable condition.
--- NOTE | 2019-02-15 10:06 | PDOC PROGRESS REPORT ---
Subjective Progress Note for:: 02/15/19 Subjective:: Patient c/o minimal incisional water, no other complaints Reason For Visit: ACUTE CHOLECYSTITIS,CHOLELITHIASIS,HYPERTENSION Physical Exam Vital Signs: Temp Pulse Resp BP Pulse Ox 98.5 F 90 15 119/76 95 02/15/19 07:30 02/15/19 07:30 02/15/19 07:30 02/15/19 07:30 02/15/19 07:30 Intake & Output 02/14/19 02/15/19 02/16/19 06:59 06:59 06:59 Intake Total 1024 7200 100 Output Total 3350 Balance 1024 3850 100 Weight 90.7 kg 98.8 kg General appearance: PRESENT: no acute distress Head exam: PRESENT: atraumatic Respiratory exam: PRESENT: clear to auscultation tiki Cardiovascular exam: PRESENT: RRR GI/Abdominal exam: PRESENT: hypoactive bowel sounds, soft, other - RUQ wound C/D/I, JENNIFER drain in R Lateral abdomen with bious content Results Laboratory Results: 02/15/19 05:40 02/15/19 05:40 02/14/19 02/14/19 02/15/19 15:11 15:11 05:40 WBC 11.1 H 13.9 H RBC 4.42 4.12 L Hgb 13.5 D 12.5 L Hct 39.3 36.4 L MCV 89 88 MCH 30.5 30.5 MCHC 34.3 34.5 RDW 12.3 12.5 Plt Count 236 203 Sodium Potassium Chloride Carbon Dioxide Anion Gap BUN Creatinine Est GFR ( Amer) Glucose Calcium Total Bilirubin AST Alkaline Phosphatase Total Protein Albumin Blood Type O NEGATIVE Antibody Screen NEGATIVE 02/15/19 05:40 WBC RBC Hgb Hct MCV MCH MCHC RDW Plt Count Sodium 135.2 L Potassium 4.6 Chloride 100 Carbon Dioxide 28 Anion Gap 7 BUN 17 Creatinine 1.13 Est GFR ( Amer) > 60 Glucose 119 H Calcium 8.4 Total Bilirubin 0.8 AST 439 H Alkaline Phosphatase 51 Total Protein 5.8 L Albumin 3.2 L Blood Type Antibody Screen Impressions: Abdomen Ultrasound 02/13/19 15:50 IMPRESSION: Cholelithiasis. Cannot exclude acute cholecystitis due to a positive sonographic Austin's. Hepatic steatosis. Chest X-Ray 02/13/19 18:00 IMPRESSION: NO ACUTE RADIOGRAPHIC FINDING IN THE CHEST. Cholangiogram 02/14/19 00:00 IMPRESSION: IMAGE(S) OBTAINED DURING PROCEDURE. Fluoroscopy 02/14/19 00:00 IMPRESSION: Please see combined report for performance of procedure and radiologic supervision and interpretation. KUB X-Ray 02/14/19 19:05 IMPRESSION: Postsurgical changes. NG tube is coiled in the left upper quadrant most likely stomach. Gas pattern is nonspecific. Assessment & Plan - Diagnosis (1) Injury of bile duct Qualifiers: Encounter type: initial encounter Qualified Code(s): S36.13XA - Injury of bile duct, initial encounter Is this a current diagnosis for this admission?: Yes (2) Acute cholecystitis due to biliary calculus Is this a current diagnosis for this admission?: Yes (3) Cholelithiasis Qualifiers: Cholelithiasis location: gallbladder Cholecystitis presence: with cholecystitis Cholecystitis acuity: acute and chronic Biliary obstruction: without biliary obstruction Qualified Code(s): K80.12 - Calculus of gallbladder with acute and chronic cholecystitis without obstruction Is this a current diagnosis for this admission?: Yes - Time Time Spent with patient: 25-34 minutes - Plan Summary Plan Summary: Assessment: Postoperative day #1 following attempted laparoscopic cholecystectomy with a right bile duct injury converted to open cholecystectomy and hepatojejunostomy Vital signs stable, patient afebrile Good urine output Moderate amount of drainage from the Hank-Bobo drain bilious in type Mild leukocytosis, most likely reactive Decrease in H&H most likely due to fluid administration and blood loss during surgery Liver profile demonstrates a normal bilirubin with slight elevation of alkaline phosphatase and AST ALT, as per pain possible findings Plan: Continue current therapy N.p.o. and NG tube suction until bowel function returns Incentive spirometer Physical therapy consultation for ambulation twice a day Remove Gillis Continue to monitor blood work and JENNIFER output
[2019-02-15] MEDS: CIPROFLOXACIN 400 MG/D5W RTU 400 MG/200 ML RTUPB IV SCH ×2 (10:52→21:34)
[2019-02-15] MEDS: NORMAL SALINE 1000 ML 1,000 ML IV PRN ×2 (12:08→20:04)
[2019-02-16 00:36] LABS: APPEARANCE,URINE CLEAR; BILIRUBIN,URINE NEGATIVE (NEGATIVE); COLOR,URINE YELLOW; GLUCOSE, URINE NEGATIVE (NEGATIVE); KETONES,URINE TRACE mg/dL (NEGATIVE); LEUKOCYTE ESTERASE,URINE NEGATIVE (NEGATIVE); NITRITE,URINE NEGATIVE (NEGATIVE); PROTEIN,URINE NEGATIVE (NEGATIVE); URINE SPECIFIC GRAVITY 1.026; UROBILINOGEN,URINE NEGATIVE mg/dL (<2.0)
[2019-02-16] MEDS: MORPHINE SULFATE 10 MG/ML INJ IV PRN ×6 (01:14→21:17)
[2019-02-16] MEDS: ACETAMINOPHEN 1,000 MG/100 ML RTUPB IV SCH ×4 (02:25→21:04)
[2019-02-16 05:59] LABS: ABSOLUTE EOSINOPHILS # (AUTO) 0.1 10^3/uL (0.0-0.6); ABSOLUTE LYMPHOCYTES (AUTO) 1.2 10^3/uL (0.5-4.7); ABSOLUTE MONOCYTES (AUTO) 0.9 10^3/uL (0.1-1.4); ABSOLUTE NEUT (AUTO) 8.3 10^3/uL (1.7-8.2); BASOPHILS % (AUTO) 0.4 % (0-2); EOSINOPHILS % (AUTO) 1.1 % (0-6); HEMATOCRIT 34.8 % (37.9-51.0); LYMPHOCYTES % (AUTO) 11.6 % (13-45); MEAN CORPUSCULAR HEMOGLOBIN 30.8 pg (27.0-33.4); MEAN CORPUSCULAR HGB CONC 34.5 g/dL (32.0-36.0); MEAN CORPUSCULAR VOLUME 89 fl (80-97); MONOCYTES % (AUTO) 8.5 % (3-13); PLATELET COUNT 208 10^3/uL (150-450); RED BLOOD COUNT 3.91 10^6/uL (4.35-5.55); RED CELL DISTRIBUTION WIDTH 12.5 % (11.5-14.0); SEGMENTED NEUTROPHILS % (AUTO) 78.4 % (42-78); TOTAL CELLS COUNTED % (AUTO) 100 %; WHITE BLOOD COUNT 10.5 10^3/uL (4.0-10.5)
[2019-02-16] MEDS: METRONIDAZOLE 500 MG/NS RTU 500 MG/100 ML RTUPB IV SCH ×3 (06:22→21:05)
[2019-02-16] MEDS: FAMOTIDINE INJ/PF 20 MG/2 ML SDV IV SCH ×2 (06:22→17:43)
[2019-02-16] MEDS: NORMAL SALINE 1000 ML 1,000 ML IV PRN ×2 (06:27→21:13)
[2019-02-16 06:28] LABS: ALBUMIN 3.1 g/dL (3.5-5.0); ALKALINE PHOSPHATASE 48 U/L (38-126); ANION GAP 8 (5-19); ASPARTATE AMINO TRANSFERASE 219 U/L (17-59); BILIRUBIN,DIRECT 0.4 mg/dL (0.0-0.4); BLOOD UREA NITROGEN 17 mg/dL (7-20); CALCIUM 8.6 mg/dL (8.4-10.2); CARBON DIOXIDE 26 mmol/L (22-30); CHLORIDE 104 mmol/L (98-107); GLUCOSE 105 mg/dL (75-110); POTASSIUM 4.2 mmol/L (3.6-5.0); TOTAL PROTEIN 5.7 g/dL (6.3-8.2)
[2019-02-16] MEDS: ENOXAPARIN SODIUM INJ 40 MG/0.4 ML DISP.SYRIN SUBCUT SCH (08:19)
--- NOTE | 2019-02-16 08:36 | PDOC PROGRESS REPORT ---
Subjective Progress Note for:: 02/16/19 Subjective:: sore throat due to ng Reason For Visit: ACUTE CHOLECYSTITIS,S/P LAP BRENDA,S/P REPAIR OF Physical Exam Vital Signs: Temp Pulse Resp BP Pulse Ox 98.4 F 92 18 120/72 95 02/15/19 23:39 02/15/19 23:39 02/15/19 23:39 02/15/19 23:39 02/15/19 23:39 Intake & Output 02/15/19 02/16/19 02/17/19 06:59 06:59 06:59 Intake Total 7200 3352 100 Output Total 3350 1525 Balance 3850 1827 100 Weight 98.8 kg 94.6 kg General appearance: PRESENT: no acute distress Head exam: PRESENT: normocephalic Eye exam: PRESENT: EOMI Ear exam: PRESENT: normal external ear exam Mouth exam: PRESENT: moist Neck exam: PRESENT: full ROM Respiratory exam: PRESENT: clear to auscultation tiki Cardiovascular exam: PRESENT: RRR Pulses: PRESENT: normal radial pulses, normal femoral pulses GI/Abdominal exam: PRESENT: hypoactive bowel sounds, soft, other - linda bilious. Rectal exam: PRESENT: deferred Extremities exam: PRESENT: full ROM Musculoskeletal exam: PRESENT: full ROM Neurological exam: PRESENT: alert, altered, awake, oriented to person, oriented to place Psychiatric exam: PRESENT: appropriate affect Skin exam: PRESENT: dry - s/p right hepatic duct repair with hepaticojejunostomy still iwth some leak and linda bilious drainage still with ileus with few bowel sounds plan cont current rx cont ng till passing flatus. Results Laboratory Results: 02/16/19 05:10 02/16/19 05:10 02/15/19 02/16/19 02/16/19 23:45 05:10 05:10 WBC 10.5 RBC 3.91 L Hgb 12.0 L Hct 34.8 L MCV 89 MCH 30.8 MCHC 34.5 RDW 12.5 Plt Count 208 Seg Neutrophils % 78.4 H Sodium 138.3 Potassium 4.2 Chloride 104 Carbon Dioxide 26 Anion Gap 8 BUN 17 Creatinine 1.21 Est GFR ( Amer) > 60 Glucose 105 Calcium 8.6 Total Bilirubin 1.0 AST 219 H Alkaline Phosphatase 48 Total Protein 5.7 L Albumin 3.1 L Urine Color YELLOW Urine Appearance CLEAR Urine pH 5.0 Ur Specific [place] 1.026 Urine Protein NEGATIVE Urine Glucose (UA) NEGATIVE Urine Ketones TRACE H Urine Blood NEGATIVE Urine Nitrite NEGATIVE Ur Leukocyte Esterase NEGATIVE Urine WBC (Auto) 1 Urine RBC (Auto) 0 Impressions: Abdomen Ultrasound 02/13/19 15:50 IMPRESSION: Cholelithiasis. Cannot exclude acute cholecystitis due to a positive sonographic Austin's. Hepatic steatosis. Chest X-Ray 02/13/19 18:00 IMPRESSION: NO ACUTE RADIOGRAPHIC FINDING IN THE CHEST. Cholangiogram 02/14/19 00:00 IMPRESSION: IMAGE(S) OBTAINED DURING PROCEDURE. Fluoroscopy 02/14/19 00:00 IMPRESSION: Please see combined report for performance of procedure and radiologic supervision and interpretation. KUB X-Ray 02/14/19 19:05 IMPRESSION: Postsurgical changes. NG tube is coiled in the left upper quadrant most likely stomach. Gas pattern is nonspecific. Assessment & Plan - Time Time Spent with patient: 25-34 minutes
[2019-02-16] MEDS: CIPROFLOXACIN 400 MG/D5W RTU 400 MG/200 ML RTUPB IV SCH ×2 (10:29→21:04)
[2019-02-16] MEDS: BENZOCAINE/MENTHOL SORE THROAT LOZENGE BUCCAL PRN ×4 (13:04→21:17)
[2019-02-17] MEDS: BENZOCAINE/MENTHOL SORE THROAT LOZENGE BUCCAL PRN ×7 (00:05→22:08)
[2019-02-17] MEDS: ACETAMINOPHEN 1,000 MG/100 ML RTUPB IV SCH ×4 (02:41→21:09)
[2019-02-17] MEDS: MORPHINE SULFATE 10 MG/ML INJ IV PRN ×5 (02:41→18:24)
[2019-02-17] MEDS: FAMOTIDINE INJ/PF 20 MG/2 ML SDV IV SCH ×2 (05:38→18:17)
[2019-02-17] MEDS: METRONIDAZOLE 500 MG/NS RTU 500 MG/100 ML RTUPB IV SCH ×3 (05:38→23:23)
[2019-02-17 05:43] LABS: ABSOLUTE EOSINOPHILS # (AUTO) 0.3 10^3/uL (0.0-0.6); ABSOLUTE LYMPHOCYTES (AUTO) 0.9 10^3/uL (0.5-4.7); ABSOLUTE MONOCYTES (AUTO) 0.8 10^3/uL (0.1-1.4); ABSOLUTE NEUT (AUTO) 7.8 10^3/uL (1.7-8.2); BASOPHILS % (AUTO) 0.5 % (0-2); EOSINOPHILS % (AUTO) 2.9 % (0-6); HEMATOCRIT 33.1 % (37.9-51.0); HEMOGLOBIN 11.6 g/dL (13.5-17.0); LYMPHOCYTES % (AUTO) 8.8 % (13-45); MEAN CORPUSCULAR VOLUME 89 fl (80-97); MONOCYTES % (AUTO) 8.3 % (3-13); PLATELET COUNT 211 10^3/uL (150-450); RED BLOOD COUNT 3.74 10^6/uL (4.35-5.55); RED CELL DISTRIBUTION WIDTH 12.6 % (11.5-14.0); SEGMENTED NEUTROPHILS % (AUTO) 79.5 % (42-78); TOTAL CELLS COUNTED % (AUTO) 100 %; WHITE BLOOD COUNT 9.8 10^3/uL (4.0-10.5)
[2019-02-17 06:08] LABS: ALBUMIN 3.1 g/dL (3.5-5.0); ALKALINE PHOSPHATASE 52 U/L (38-126); ANION GAP 8 (5-19); ASPARTATE AMINO TRANSFERASE 120 U/L (17-59); BILIRUBIN,DIRECT 0.2 mg/dL (0.0-0.4); BILIRUBIN,TOTAL 0.6 mg/dL (0.2-1.3); BLOOD UREA NITROGEN 14 mg/dL (7-20); CALCIUM 8.5 mg/dL (8.4-10.2); CARBON DIOXIDE 26 mmol/L (22-30); CHLORIDE 101 mmol/L (98-107); GLUCOSE 109 mg/dL (75-110); POTASSIUM 3.9 mmol/L (3.6-5.0); TOTAL PROTEIN 5.8 g/dL (6.3-8.2)
[2019-02-17] MEDS: ENOXAPARIN SODIUM INJ 40 MG/0.4 ML DISP.SYRIN SUBCUT SCH (08:39)
[2019-02-17] MEDS: CIPROFLOXACIN 400 MG/D5W RTU 400 MG/200 ML RTUPB IV SCH ×2 (09:30→22:09)
--- NOTE | 2019-02-17 09:54 | PDOC PROGRESS REPORT ---
Subjective Progress Note for:: 02/17/19 Subjective:: comfortable, the patient denies flatus or bowel movements, minimal incisional abdominal pain Reason For Visit: ACUTE CHOLECYSTITIS,S/P LAP BRENDA,S/P REPAIR OF Physical Exam Vital Signs: Temp Pulse Resp BP Pulse Ox 97.4 F 81 14 127/74 H 96 02/17/19 07:32 02/17/19 07:32 02/17/19 07:32 02/17/19 07:32 02/17/19 07:32 Intake & Output 02/16/19 02/17/19 02/18/19 06:59 06:59 06:59 Intake Total 3352 2200 100 Output Total 1585 2890 Balance 1767 -690 100 Weight 94.6 kg 93.1 kg General appearance: PRESENT: no acute distress Respiratory exam: PRESENT: clear to auscultation tiki Cardiovascular exam: PRESENT: RRR GI/Abdominal exam: PRESENT: soft, other - Right upper quadrant incision clean, dry, and intact; right lower quadrant abdominal Hank-Bobo drain with serous fluid Skin exam: PRESENT: other - No jaundice noted Results Laboratory Results: 02/17/19 05:23 02/17/19 05:23 02/17/19 02/17/19 05:23 05:23 WBC 9.8 RBC 3.74 L Hgb 11.6 L Hct 33.1 L MCV 89 MCH 31.0 MCHC 35.0 RDW 12.6 Plt Count 211 Seg Neutrophils % 79.5 H Sodium 135.3 L Potassium 3.9 Chloride 101 Carbon Dioxide 26 Anion Gap 8 BUN 14 Creatinine 1.00 Est GFR ( Amer) > 60 Glucose 109 Calcium 8.5 Total Bilirubin 0.6 AST 120 H Alkaline Phosphatase 52 Total Protein 5.8 L Albumin 3.1 L Impressions: Abdomen Ultrasound 02/13/19 15:50 IMPRESSION: Cholelithiasis. Cannot exclude acute cholecystitis due to a positive sonographic Austin's. Hepatic steatosis. Chest X-Ray 02/13/19 18:00 IMPRESSION: NO ACUTE RADIOGRAPHIC FINDING IN THE CHEST. Cholangiogram 02/14/19 00:00 IMPRESSION: IMAGE(S) OBTAINED DURING PROCEDURE. Fluoroscopy 02/14/19 00:00 IMPRESSION: Please see combined report for performance of procedure and radiologic supervision and interpretation. KUB X-Ray 02/14/19 19:05 IMPRESSION: Postsurgical changes. NG tube is coiled in the left upper quadrant most likely stomach. Gas pattern is nonspecific. Assessment & Plan - Diagnosis (1) Injury of bile duct Qualifiers: Encounter type: initial encounter Qualified Code(s): S36.13XA - Injury of bile duct, initial encounter Is this a current diagnosis for this admission?: Yes (2) Acute cholecystitis due to biliary calculus Is this a current diagnosis for this admission?: Yes (3) Cholelithiasis Qualifiers: Cholelithiasis location: gallbladder Cholecystitis presence: with cholecystitis Cholecystitis acuity: acute and chronic Biliary obstruction: without biliary obstruction Qualified Code(s): K80.12 - Calculus of gallbladder with acute and chronic cholecystitis without obstruction Is this a current diagnosis for this admission?: Yes - Time Time Spent with patient: 25-34 minutes - Plan Summary Plan Summary: Assessment: Postoperative day #3 following attempted laparoscopic cholecystectomy and repair of right biliary duct injury Vital signs stable, patient afebrile Good urine output Still elevated Hank-Bobo bilious drainage due to persistence of postoperative ileus: I expect that the amount of drainage from the Hank-Bobo drain will decrease once her bowel function returns No flatus or bowel function reported Blood work within normal limits including liver profile Plan: Continue n.p.o., nasogastric tube, IV fluids Continue IV antibiotics Encourage ambulation hourly to stimulate bowel function return Start Reglan 10 mg IV push every 6 hours Glycerin suppository 1 per rectum twice daily to stimulate the bowel function The nasogastric tube will be removed once bowel function returns
[2019-02-17] MEDS: METOCLOPRAMIDE HCL 10 MG TABLET PO SCH ×2 (11:29→18:17)
[2019-02-17] MEDS: GLYCERIN (ADULT) SUPP.RECT PR SCH ×2 (11:31→18:25)
[2019-02-17] MEDS: NORMAL SALINE 1000 ML 1,000 ML IV PRN (23:23)
[2019-02-18] MEDS: METOCLOPRAMIDE HCL 10 MG TABLET PO SCH ×5 (00:36→23:18)
[2019-02-18] MEDS: BENZOCAINE/MENTHOL SORE THROAT LOZENGE BUCCAL PRN (00:40)
[2019-02-18] MEDS: ACETAMINOPHEN 1,000 MG/100 ML RTUPB IV SCH ×4 (02:45→20:56)
[2019-02-18 05:02] LABS: ABSOLUTE BASOPHILS # (AUTO) 0.1 10^3/uL (0.0-0.2); ABSOLUTE EOSINOPHILS # (AUTO) 0.3 10^3/uL (0.0-0.6); ABSOLUTE LYMPHOCYTES (AUTO) 1.1 10^3/uL (0.5-4.7); ABSOLUTE MONOCYTES (AUTO) 0.9 10^3/uL (0.1-1.4); ABSOLUTE NEUT (AUTO) 7.1 10^3/uL (1.7-8.2); BASOPHILS % (AUTO) 0.5 % (0-2); EOSINOPHILS % (AUTO) 3.5 % (0-6); HEMATOCRIT 31.3 % (37.9-51.0); HEMOGLOBIN 10.8 g/dL (13.5-17.0); LYMPHOCYTES % (AUTO) 11.5 % (13-45); MEAN CORPUSCULAR HEMOGLOBIN 30.5 pg (27.0-33.4); MEAN CORPUSCULAR HGB CONC 34.4 g/dL (32.0-36.0); MEAN CORPUSCULAR VOLUME 89 fl (80-97); MONOCYTES % (AUTO) 9.5 % (3-13); PLATELET COUNT 242 10^3/uL (150-450); RED BLOOD COUNT 3.54 10^6/uL (4.35-5.55); RED CELL DISTRIBUTION WIDTH 12.3 % (11.5-14.0); TOTAL CELLS COUNTED % (AUTO) 100 %; WHITE BLOOD COUNT 9.5 10^3/uL (4.0-10.5)
[2019-02-18 05:13] LABS: ALKALINE PHOSPHATASE 67 U/L (38-126); ANION GAP 9 (5-19); ASPARTATE AMINO TRANSFERASE 83 U/L (17-59); BILIRUBIN,DIRECT 0.2 mg/dL (0.0-0.4); BILIRUBIN,TOTAL 0.6 mg/dL (0.2-1.3); BLOOD UREA NITROGEN 15 mg/dL (7-20); CALCIUM 8.6 mg/dL (8.4-10.2); CARBON DIOXIDE 26 mmol/L (22-30); CHLORIDE 104 mmol/L (98-107); GLUCOSE 105 mg/dL (75-110); POTASSIUM 3.8 mmol/L (3.6-5.0); TOTAL PROTEIN 5.6 g/dL (6.3-8.2)
[2019-02-18] MEDS: METRONIDAZOLE 500 MG/NS RTU 500 MG/100 ML RTUPB IV SCH ×3 (05:25→22:12)
[2019-02-18] MEDS: FAMOTIDINE INJ/PF 20 MG/2 ML SDV IV SCH ×2 (05:25→17:47)
--- NOTE | 2019-02-18 07:23 | PDOC PROGRESS REPORT ---
Subjective Progress Note for:: 02/18/19 Subjective:: Patient is comfortable, he reports passing flatus twice Reason For Visit: ACUTE CHOLECYSTITIS,S/P LAP BRENDA,S/P REPAIR OF Physical Exam Vital Signs: Temp Pulse Resp BP Pulse Ox 98.4 F 80 17 117/71 100 02/18/19 00:05 02/18/19 00:05 02/18/19 00:05 02/18/19 00:05 02/18/19 00:05 Intake & Output 02/17/19 02/18/19 02/19/19 06:59 06:59 06:59 Intake Total 2200 2340 Output Total 2890 1480 Balance -690 860 Weight 93.1 kg General appearance: PRESENT: no acute distress Respiratory exam: PRESENT: clear to auscultation tiki Cardiovascular exam: PRESENT: RRR, systolic murmur GI/Abdominal exam: PRESENT: hypoactive bowel sounds, soft, other - Right upper quadrant incision clean, dry, intact; right lateral abdominal drain site clean w ith drain bulb filled with bilious fluid Results Laboratory Results: 02/18/19 04:06 02/18/19 04:06 02/18/19 02/18/19 04:06 04:06 WBC 9.5 RBC 3.54 L Hgb 10.8 L Hct 31.3 L MCV 89 MCH 30.5 MCHC 34.4 RDW 12.3 Plt Count 242 Seg Neutrophils % 75.0 Sodium 139.1 Potassium 3.8 Chloride 104 Carbon Dioxide 26 Anion Gap 9 BUN 15 Creatinine 0.95 Est GFR ( Amer) > 60 Glucose 105 Calcium 8.6 Total Bilirubin 0.6 AST 83 H Alkaline Phosphatase 67 Total Protein 5.6 L Albumin 3.0 L Impressions: Abdomen Ultrasound 02/13/19 15:50 IMPRESSION: Cholelithiasis. Cannot exclude acute cholecystitis due to a positi ve sonographic Austin's. Hepatic steatosis. Chest X-Ray 02/13/19 18:00 IMPRESSION: NO ACUTE RADIOGRAPHIC FINDING IN THE CHEST. Cholangiogram 02/14/19 00:00 IMPRESSION: IMAGE(S) OBTAINED DURING PROCEDURE. Fluoroscopy 02/14/19 00:00 IMPRESSION: Please see combined report for performance of procedure and radi ologic supervision and interpretation. KUB X-Ray 02/14/19 19:05 IMPRESSION: Postsurgical changes. NG tube is coiled in the left upper quadrant most likely stomach. Gas pattern is nonspecific. Assessment & Plan - Diagnosis (1) Injury of bile duct Qualifiers: Encounter type: initial encounter Qualified Code(s): S36.13XA - Injury of bile duct, initial encounter Is this a current diagnosis for this admission?: Yes (2) Acute cholecystitis due to biliary calculus Is this a current diagnosis for this admission?: Yes (3) Cholelithiasis Qualifiers: Cholelithiasis location: gallbladder Cholecystitis presence: with cholecystitis Cholecystitis acuity: acute and chronic Biliary obstruction: without biliary obstruction Qualified Code(s): K80.12 - Calculus of gallbladder with acute and chronic cholecystitis without obstruction Is this a current diagnosis for this admission?: Yes - Time Time Spent with patient: 15-24 minutes - Plan Summary Plan Summary: Assessment: Postop day #4 following attempted laparoscopic cholecystectomy, open cholecystectomy and repair of right biliary duct injury Vital signs are stable patient afebrile Patient passing flatus Still moderately elevated Hank-Bobo drain output about 500 mm in the past 24 hours CBC and liver profile all within normal limits Physical exam unremarkable Plan: Clamp NG tube for 4 hours If residual less than 100 mL, we will remove nasogastric tube and advance diet to clear liquids
[2019-02-18] MEDS: ENOXAPARIN SODIUM INJ 40 MG/0.4 ML DISP.SYRIN SUBCUT SCH (08:41)
[2019-02-18] MEDS: KETOROLAC TROMETHAMINE INJ/PF 30 MG/1 ML SDV IV PRN (09:05)
[2019-02-18] MEDS: NORMAL SALINE 1000 ML 1,000 ML IV PRN ×2 (09:05→20:30)
[2019-02-18] MEDS: GLYCERIN (ADULT) SUPP.RECT PR SCH ×2 (10:17→17:45)
[2019-02-18] MEDS: CIPROFLOXACIN 400 MG/D5W RTU 400 MG/200 ML RTUPB IV SCH ×2 (10:17→23:19)
[2019-02-19] MEDS: ACETAMINOPHEN 1,000 MG/100 ML RTUPB IV SCH ×3 (02:05→16:10)
[2019-02-19 02:40] LABS: APPEARANCE,URINE CLEAR; BILIRUBIN,URINE NEGATIVE (NEGATIVE); COLOR,URINE YELLOW; GLUCOSE, URINE NEGATIVE (NEGATIVE); KETONES,URINE TRACE mg/dL (NEGATIVE); LEUKOCYTE ESTERASE,URINE TRACE (NEGATIVE); NITRITE,URINE NEGATIVE (NEGATIVE); PROTEIN,URINE NEGATIVE (NEGATIVE); URINE SPECIFIC GRAVITY 1.016; UROBILINOGEN,URINE NEGATIVE mg/dL (<2.0)
[2019-02-19] MEDS: METOCLOPRAMIDE HCL 10 MG TABLET PO SCH ×3 (05:13→18:01)
[2019-02-19] MEDS: METRONIDAZOLE 500 MG/NS RTU 500 MG/100 ML RTUPB IV SCH ×3 (05:14→22:57)
[2019-02-19] MEDS: FAMOTIDINE INJ/PF 20 MG/2 ML SDV IV SCH ×2 (05:14→18:01)
[2019-02-19 05:43] LABS: ABSOLUTE EOSINOPHILS # (AUTO) 0.4 10^3/uL (0.0-0.6); ABSOLUTE MONOCYTES (AUTO) 0.9 10^3/uL (0.1-1.4); ABSOLUTE NEUT (AUTO) 6.1 10^3/uL (1.7-8.2); BASOPHILS % (AUTO) 0.5 % (0-2); EOSINOPHILS % (AUTO) 4.4 % (0-6); HEMATOCRIT 31.3 % (37.9-51.0); HEMOGLOBIN 10.8 g/dL (13.5-17.0); LYMPHOCYTES % (AUTO) 11.4 % (13-45); MEAN CORPUSCULAR HEMOGLOBIN 30.6 pg (27.0-33.4); MEAN CORPUSCULAR HGB CONC 34.6 g/dL (32.0-36.0); MEAN CORPUSCULAR VOLUME 89 fl (80-97); MONOCYTES % (AUTO) 10.8 % (3-13); PLATELET COUNT 264 10^3/uL (150-450); RED BLOOD COUNT 3.54 10^6/uL (4.35-5.55); RED CELL DISTRIBUTION WIDTH 12.5 % (11.5-14.0); SEGMENTED NEUTROPHILS % (AUTO) 72.9 % (42-78); TOTAL CELLS COUNTED % (AUTO) 100 %; WHITE BLOOD COUNT 8.4 10^3/uL (4.0-10.5)
[2019-02-19 06:23] LABS: ALBUMIN 2.8 g/dL (3.5-5.0); ALKALINE PHOSPHATASE 75 U/L (38-126); ANION GAP 7 (5-19); ASPARTATE AMINO TRANSFERASE 87 U/L (17-59); BILIRUBIN,DIRECT 0.3 mg/dL (0.0-0.4); BILIRUBIN,TOTAL 0.6 mg/dL (0.2-1.3); BLOOD UREA NITROGEN 15 mg/dL (7-20); CALCIUM 8.5 mg/dL (8.4-10.2); CARBON DIOXIDE 25 mmol/L (22-30); CHLORIDE 107 mmol/L (98-107); GLUCOSE 98 mg/dL (75-110); POTASSIUM 3.9 mmol/L (3.6-5.0); TOTAL PROTEIN 5.2 g/dL (6.3-8.2)
--- NOTE | 2019-02-19 07:29 | PDOC PROGRESS REPORT ---
Subjective Progress Note for:: 02/19/19 Subjective:: feels much better with ng out having bm's Reason For Visit: ACUTE CHOLECYSTITIS,S/P LAP BRENDA,S/P REPAIR OF Physical Exam Vital Signs: Temp Pulse Resp BP Pulse Ox 98.7 F 79 15 135/73 H 98 02/18/19 23:43 02/18/19 23:43 02/18/19 23:43 02/18/19 23:43 02/18/19 23:43 Intake & Output 02/18/19 02/19/19 02/20/19 06:59 06:59 06:59 Intake Total 2340 3860 Output Total 1480 480 Balance 860 3380 Weight 94.4 kg General appearance: PRESENT: no acute distress Head exam: PRESENT: normocephalic Eye exam: PRESENT: EOMI Ear exam: PRESENT: normal external ear exam Mouth exam: PRESENT: moist Neck exam: PRESENT: full ROM Respiratory exam: PRESENT: clear to auscultation tiki Cardiovascular exam: PRESENT: RRR Pulses: PRESENT: normal radial pulses, normal femoral pulses GI/Abdominal exam: PRESENT: soft Rectal exam: PRESENT: deferred Extremities exam: PRESENT: full ROM Musculoskeletal exam: PRESENT: full ROM Neurological exam: PRESENT: alert, awake, oriented to person, oriented to place, oriented to time, oriented to situation Psychiatric exam: PRESENT: appropriate affect Skin exam: PRESENT: dry Results Laboratory Results: 02/19/19 04:55 02/19/19 04:55 02/19/19 02/19/19 02/19/19 02:15 04:55 04:55 WBC 8.4 RBC 3.54 L Hgb 10.8 L Hct 31.3 L MCV 89 MCH 30.6 MCHC 34.6 RDW 12.5 Plt Count 264 Seg Neutrophils % 72.9 Sodium 138.8 Potassium 3.9 Chloride 107 Carbon Dioxide 25 Anion Gap 7 BUN 15 Creatinine 0.96 Est GFR ( Amer) > 60 Glucose 98 Calcium 8.5 Total Bilirubin 0.6 AST 87 H Alkaline Phosphatase 75 Total Protein 5.2 L Albumin 2.8 L Urine Color YELLOW Urine Appearance CLEAR Urine pH 6.0 Ur Specific [place] 1.016 Urine Protein NEGATIVE Urine Glucose (UA) NEGATIVE Urine Ketones TRACE H Urine Blood NEGATIVE Urine Nitrite NEGATIVE Ur Leukocyte Esterase TRACE H Urine WBC (Auto) 1 02/13/19 19:52 Blood Blood Culture - Final NO GROWTH IN 5 DAYS 02/13/19 18:40 Blood Blood Culture - Final NO GROWTH IN 5 DAYS 02/14/19 13:13 Gallbladder Gram Stain - Final 02/14/19 13:13 Gallbladder Wound Culture - Final Escherichia Coli No Anaerobic Organisms Impressions: Abdomen Ultrasound 02/13/19 15:50 IMPRESSION: Cholelithiasis. Cannot exclude acute cholecystitis due to a positive sonographic Austin's. Hepatic steatosis. Chest X-Ray 02/13/19 18:00 IMPRESSION: NO ACUTE RADIOGRAPHIC FINDING IN THE CHEST. Cholangiogram 02/14/19 00:00 IMPRESSION: IMAGE(S) OBTAINED DURING PROCEDURE. Fluoroscopy 02/14/19 00:00 IMPRESSION: Please see combined report for performance of procedure and radiologic supervision and interpretation. KUB X-Ray 02/14/19 19:05 IMPRESSION: Postsurgical changes. NG tube is coiled in the left upper quadrant most likely stomach. Gas pattern is nonspecific. Assessment & Plan - Time Time Spent with patient: 25-34 minutes - Plan Summary Plan Summary: will start soft diet poss home in 1-2 days.
[2019-02-19] MEDS: MORPHINE SULFATE 10 MG/ML INJ IV PRN ×3 (10:23→19:50)
[2019-02-19] MEDS: GLYCERIN (ADULT) SUPP.RECT PR SCH ×2 (11:33→17:54)
[2019-02-19] MEDS: NORMAL SALINE 1000 ML 1,000 ML IV PRN (11:38)
[2019-02-19] MEDS: ENOXAPARIN SODIUM INJ 40 MG/0.4 ML DISP.SYRIN SUBCUT SCH (11:43)
[2019-02-19] MEDS: CIPROFLOXACIN 400 MG/D5W RTU 400 MG/200 ML RTUPB IV SCH ×2 (13:53→21:46)
[2019-02-19] MEDS: KETOROLAC TROMETHAMINE INJ/PF 30 MG/1 ML SDV IV PRN (15:39)
[2019-02-19] MEDS ORDERED: BISACODYL 10 MG SUPP.RECT PR ONE (16:15)
--- NOTE | 2019-02-19 16:16 | EKG REPORT ---
SEVERITY:- ABNORMAL ECG - SINUS TACHYCARDIA NONSPECIFIC T ABNORMALITIES, INFERIOR LEADS : Confirmed by: Yuliya Montes MD 19-Feb-2019 16:15:57
[2019-02-19] MEDS: HYDROMORPHONE HCL INJ/PF 2 MG/ML AMPULE IV PRN ×2 (16:44→22:10)
[2019-02-19] MEDS ORDERED: DEXTROSE 40% GEL 15 GM TUBE PO PRN ×2 (18:36)
[2019-02-19] MEDS ORDERED: DEXTROSE 50%-WATER 25 GM/50 ML DISP.SYRIN IV PRN ×2 (18:36)
[2019-02-19] MEDS ORDERED: GLUCAGON,HUMAN RECOMB 1 MG INJ SUBCUT PRN (18:36)
[2019-02-20] MEDS: METOCLOPRAMIDE HCL 10 MG TABLET PO SCH ×5 (00:04→23:04)
[2019-02-20] MEDS: NORMAL SALINE 1000 ML 1,000 ML IV PRN ×2 (01:16→12:07)
[2019-02-20] MEDS: FAMOTIDINE INJ/PF 20 MG/2 ML SDV IV SCH ×2 (05:11→18:09)
[2019-02-20] MEDS: METRONIDAZOLE 500 MG/NS RTU 500 MG/100 ML RTUPB IV SCH (05:11)
--- NOTE | 2019-02-20 07:31 | PDOC PROGRESS REPORT ---
Subjective Progress Note for:: 02/20/19 Subjective:: had some left sided abd pain last pm passed flatus, now better, still with some pain Reason For Visit: ACUTE CHOLECYSTITIS,S/P LAP BRENDA,S/P REPAIR OF Physical Exam Vital Signs: Temp Pulse Resp BP Pulse Ox 99.9 F 105 H 18 104/57 L 92 02/20/19 00:04 02/20/19 00:04 02/20/19 00:04 02/20/19 00:04 02/20/19 00:04 Intake & Output 02/19/19 02/20/19 02/21/19 06:59 06:59 06:59 Intake Total 4860 2260 Output Total 480 130 Balance 4380 2130 Weight 94.4 kg General appearance: PRESENT: no acute distress Head exam: PRESENT: normocephalic Eye exam: PRESENT: EOMI Mouth exam: PRESENT: moist Neck exam: PRESENT: full ROM Respiratory exam: PRESENT: clear to auscultation tiki Cardiovascular exam: PRESENT: RRR Pulses: PRESENT: normal femoral pulses, normal dorsalis pedis pul Vascular exam: PRESENT: normal capillary refill GI/Abdominal exam: PRESENT: tenderness - tenderness to deep palpation, no rebound tenderness, other - linda sl cloudy. Rectal exam: PRESENT: deferred Musculoskeletal exam: PRESENT: full ROM Neurological exam: PRESENT: alert, awake, oriented to person, oriented to place Psychiatric exam: PRESENT: appropriate affect Skin exam: PRESENT: dry Results Laboratory Results: 02/19/19 04:55 02/19/19 14:06 Troponin I < 0.012 Impressions: Abdomen Ultrasound 02/13/19 15:50 IMPRESSION: Cholelithiasis. Cannot exclude acute cholecystitis due to a positive sonographic Austin's. Hepatic steatosis. Chest X-Ray 02/13/19 18:00 IMPRESSION: NO ACUTE RADIOGRAPHIC FINDING IN THE CHEST. Cholangiogram 02/14/19 00:00 IMPRESSION: IMAGE(S) OBTAINED DURING PROCEDURE. Fluoroscopy 02/14/19 00:00 IMPRESSION: Please see combined report for performance of procedure and radiologic supervision and interpretation. KUB X-Ray 02/14/19 19:05 IMPRESSION: Postsurgical changes. NG tube is coiled in the left upper quadrant most likely stomach. Gas pattern is nonspecific. Assessment & Plan - Time Time Spent with patient: 25-34 minutes - Plan Summary Plan Summary: linda output sl decreased howerver sl cloudy abd pain improved since yesterday passing flatus plan check labs consider ct abd if wbc increased
[2019-02-20 07:33] LABS: HEMATOCRIT 33.5 % (37.9-51.0); HEMOGLOBIN 11.8 g/dL (13.5-17.0); MEAN CORPUSCULAR HEMOGLOBIN 30.8 pg (27.0-33.4); MEAN CORPUSCULAR HGB CONC 35.1 g/dL (32.0-36.0); MEAN CORPUSCULAR VOLUME 88 fl (80-97); RED BLOOD COUNT 3.83 10^6/uL (4.35-5.55); RED CELL DISTRIBUTION WIDTH 12.6 % (11.5-14.0)
[2019-02-20 08:05] LABS: PLATELET COUNT 362 10^3/uL (150-450); WHITE BLOOD COUNT 23.3 10^3/uL (4.0-10.5)
--- NOTE | 2019-02-20 09:02 | Progress Note ---
Provider Note Provider Note: pts wbc elevated to 26k this am linda fluid cloudy will obtain ct scan
--- NOTE | 2019-02-20 11:58 | RADIOLOGY REPORT (SQ) ---
EXAM DESCRIPTION: CT ABD/PELVIS ORAL ONLY COMPLETED DATE/TIME: 02/20/2019 11:45 am REASON FOR STUDY: r/o intrabbominal abscess COMPARISON: None. TECHNIQUE: CT scan of the abdomen and pelvis performed without intravenous contrast. The patient di d receive oral contrast. Images reviewed with lung, soft tissue, and bone windows. Reconstructed keren nal and sagittal MPR images reviewed. All images stored on PACS. All CT scanners at this facility use dose modulation, iterative reconstruction, and/or weight based d osing when appropriate to reduce radiation dose to as low as reasonably achievable (ALARA). [facility]: Dose Right [facility]: CareDose [facility]: Dose Right [facility]: Teradose 4D [facility]: Smart PFSweb RADIATION DOSE: CT Rad equipment meets quality standard of care and radiation dose reduction techniq ues were employed. CTDIvol: 9.9 mGy. DLP: 573 mGy-cm.mGy. LIMITATIONS: None. FINDINGS: LOWER CHEST: There are small pleural effusions and basilar atelectasis. NON-CONTRASTED LIVER, SPLEEN, ADRENALS: Evaluation limited by lack of IV contrast. No identified sign ificant masses. PANCREAS: No masses. No peripancreatic inflammatory changes. GALLBLADDER: Recent cholecystectomy. Small amount of air and fluid in the gallbladder fossa. RIGHT KIDNEY AND URETER: No suspicious masses. Assessment limited by lack of IV contrast. No signif icant calcifications. No hydronephrosis or hydroureter. LEFT KIDNEY AND URETER: No suspicious masses. Assessment limited by lack of IV contrast. No signifi cant calcifications. No hydronephrosis or hydroureter. AORTA AND RETROPERITONEUM: No aneurysm. No retroperitoneal masses or adenopathy. BOWEL AND PERITONEAL CAVITY: There is a small amount of fluid in the left lateral gutter. This conta ins no air pockets. Drainage catheter remains in place situated in the gallbladder fossa. APPENDIX: Normal. PELVIS, BLADDER, AND ABDOMINAL WALL:No abnormal masses. No free fluid. Bladder normal. BONES: No significant findings. OTHER: No other significant finding. IMPRESSION: Recent cholecystectomy. Very small amount of air and fluid are present in the gallbladd er fossa. No evidence of focal abscess. There is free fluid in the left lateral gutter. Largest tr ansverse diameter is 2.0 cm. This extends approximately 8 cm cranial caudally. Small bilateral pleural effusions and basilar atelectasis. COMMENT: Quality ID # [id number]: Final reports with documentation of one or more dose reduction techniques (e.g., Automated exposure control, adjustment of the mA and/or kV according to patient size, use of iterative reconstruction technique) TECHNICAL DOCUMENTATION: JOB ID: [id number] [employer]- All Rights Reserved Reading location - IP/workstation name: [email or web address]
[2019-02-20] MEDS: MEROPENEM 1 GM in NORMAL SALINE 50 ML IV SCH ×2 (12:06→18:10)
[2019-02-20] MEDS: ENOXAPARIN SODIUM INJ 40 MG/0.4 ML DISP.SYRIN SUBCUT SCH (12:07)
[2019-02-20] MEDS: GLYCERIN (ADULT) SUPP.RECT PR SCH ×2 (12:14→18:10)
--- NOTE | 2019-02-20 13:03 | PDOC PROGRESS REPORT ---
Subjective Progress Note for:: 02/20/19 Subjective:: Patient has no complaints of, he reports flatus this morning, no nausea vomiting, no abdominal pain Reason For Visit: ACUTE CHOLECYSTITIS,S/P LAP BRENDA,S/P REPAIR OF Physical Exam Vital Signs: Temp Pulse Resp BP Pulse Ox 99.0 F 106 H 19 106/63 94 02/20/19 07:46 02/20/19 07:46 02/20/19 07:46 02/20/19 07:46 02/20/19 07:46 Intake & Output 02/19/19 02/20/19 02/21/19 06:59 06:59 06:59 Intake Total 4860 2260 1000 Output Total 480 130 Balance 4380 2130 1000 Weight 94.4 kg General appearance: PRESENT: no acute distress Respiratory exam: PRESENT: clear to auscultation tiki Cardiovascular exam: PRESENT: RRR GI/Abdominal exam: PRESENT: normal bowel sounds, soft, other - Right upper quadrant abdominal wound clean, dry, and intact; right lateral quadrant abdominal drain = filled with thick yellow fluid Extremities exam: PRESENT: other - No calf tenderness on palpation bilaterally Neurological exam: PRESENT: oriented to person, oriented to place, CN II-XII grossly intact Results Laboratory Results: 02/20/19 06:39 02/19/19 04:55 02/20/19 06:39 WBC 23.3 H D RBC 3.83 L Hgb 11.8 L Hct 33.5 L MCV 88 MCH 30.8 MCHC 35.1 RDW 12.6 Plt Count 362 02/19/19 14:06 Troponin I < 0.012 Impressions: Abdomen Ultrasound 02/13/19 15:50 IMPRESSION: Cholelithiasis. Cannot exclude acute cholecystitis due to a positive sonographic Austin's. Hepatic steatosis. Chest X-Ray 02/13/19 18:00 IMPRESSION: NO ACUTE RADIOGRAPHIC FINDING IN THE CHEST. Cholangiogram 02/14/19 00:00 IMPRESSION: IMAGE(S) OBTAINED DURING PROCEDURE. Fluoroscopy 02/14/19 00:00 IMPRESSION: Please see combined report for performance of procedure and radiologic supervision and interpretation. KUB X-Ray 02/14/19 19:05 IMPRESSION: Postsurgical changes. NG tube is coiled in the left upper quadrant most likely stomach. Gas pattern is nonspecific. Abdomen/Pelvis CT 02/20/19 00:00 IMPRESSION: Recent cholecystectomy. Very small amount of air and fluid are present in the gallbladder fossa. No evidence of focal abscess. There is free fluid in the left lateral gutter. Largest transverse diameter is 2.0 cm. This extends approximately 8 cm cranial caudally. Small bilateral pleural effusions and basilar atelectasis. Assessment & Plan - Diagnosis (1) Injury of bile duct Qualifiers: Encounter type: initial encounter Qualified Code(s): S36.13XA - Injury of bile duct, initial encounter Is this a current diagnosis for this admission?: Yes (2) Acute cholecystitis due to biliary calculus Is this a current diagnosis for this admission?: Yes (3) Cholelithiasis Qualifiers: Cholelithiasis location: gallbladder Cholecystitis presence: with cholecystitis Cholecystitis acuity: acute and chronic Biliary obstruction: w ithout biliary obstruction Qualified Code(s): K80.12 - Calculus of gallbladder with acute and chronic cholecystitis without obstruction Is this a current diagnosis for this admission?: Yes - Time Time Spent with patient: 35 or more minutes - Plan Summary Plan Summary: Assessment: Postoperative day #6 following attempted laparoscopic cholecystectomy followed b y open cholecystectomy with repair of right biliary duct injury Vital signs stable, patient afebrile Patient bowel function returned with flatus this morning Physical exam unremarkable with clear lungs, soft abdomen, abdominal incision clean dry intact, no calf tenderness, no burning with urination Intra-abdominal Hank-Bobo drain output has decreased to only 130 mL of thick yellow material Concerned about his white blood cell count 23,[address] A/P done today demonstrates a distended stomach and only a small fluid collection left lateral abdominal quadrant 2x6 cm in size; very little fluid and air bubbles in the gallbladder fossa Plan: Repeat CBC stat If the white blood cell count is elevated, I would proceed with a chest x-ray, lateral lower extremities venous duplex to rule out DVT, urinalysis and urine culture, sputum culture, and blood culture x2 Antibiotic changed to meropenem Due to the distended stomach on identified in CT scan, change diet to sips of clears only
[2019-02-20 13:33] LABS: HEMATOCRIT 30.2 % (37.9-51.0); HEMOGLOBIN 10.4 g/dL (13.5-17.0); MEAN CORPUSCULAR HEMOGLOBIN 30.2 pg (27.0-33.4); MEAN CORPUSCULAR HGB CONC 34.6 g/dL (32.0-36.0); MEAN CORPUSCULAR VOLUME 87 fl (80-97); PLATELET COUNT 320 10^3/uL (150-450); RED BLOOD COUNT 3.46 10^6/uL (4.35-5.55); RED CELL DISTRIBUTION WIDTH 12.8 % (11.5-14.0); WHITE BLOOD COUNT 19.8 10^3/uL (4.0-10.5)
[2019-02-20 13:51] LABS: ABSOLUTE LYMPHOCYTES# (MANUAL) 1.4 10^3/uL (0.5-4.7); ABSOLUTE MONOCYTES # (MANUAL) 0.8 10^3/uL (0.1-1.4); BAND NEUTROPHILS % (MANUAL) 1 % (3-5); BASOPHILS % (MANUAL) 0 % (0-2); EOSINOPHILS % (MANUAL) 1 % (0-6); LYMPHOCYTES % (MANUAL) 7 % (13-45); MONOCYTES % (MANUAL) 4 % (3-13); NUCLEATED RED BLOOD CELLS 1 /100 WBC (0); SEGMENTED NEUTROPHILS % (MAN) 87 % (42-78); TOTAL CELLS COUNTED 100
[2019-02-20 13:52] LABS: POLYCHROMASIA SLIGHT
[2019-02-20 13:53] LABS: ALBUMIN 2.7 g/dL (3.5-5.0); ALKALINE PHOSPHATASE 69 U/L (38-126); ANION GAP 9 (5-19); ASPARTATE AMINO TRANSFERASE 49 U/L (17-59); BILIRUBIN,DIRECT 0.2 mg/dL (0.0-0.4); BILIRUBIN,TOTAL 0.7 mg/dL (0.2-1.3); BLOOD UREA NITROGEN 15 mg/dL (7-20); CALCIUM 8.2 mg/dL (8.4-10.2); CARBON DIOXIDE 24 mmol/L (22-30); CHLORIDE 103 mmol/L (98-107); GLUCOSE 100 mg/dL (75-110); PLATELET COMMENT ADEQUATE; POTASSIUM 3.8 mmol/L (3.6-5.0); TOTAL PROTEIN 5.3 g/dL (6.3-8.2)
--- NOTE | 2019-02-20 16:01 | RADIOLOGY REPORT (SQ) ---
EXAM DESCRIPTION: CHEST 2 VIEWS COMPLETED DATE/TIME: 02/20/2019 3:50 pm REASON FOR STUDY: s/p laparotomy; leukocytosis; r/o pneumonia COMPARISON: 02/13/2019 EXAM PARAMETERS: NUMBER OF VIEWS: two views TECHNIQUE: Digital Frontal and Lateral radiographic views of the chest acquired. RADIATION DOSE: NA LIMITATIONS: none FINDINGS: LUNGS AND PLEURA: There are small effusions and bibasilar atelectasis. MEDIASTINUM AND HILAR STRUCTURES: No masses or contour abnormalities. HEART AND VASCULAR STRUCTURES: Heart normal size. No evidence for failure. BONES: No acute findings. HARDWARE: None in the chest. OTHER: There is a lucency underneath the left hemidiaphragm. Small amount of free air cannot be excl uded. This may be related to recent laparotomy. IMPRESSION: Basilar atelectasis and small effusions. Suspect small amount of pneumoperitoneum proba garcia related to recent surgery. TECHNICAL DOCUMENTATION: JOB ID: [id number] [employer]- All Rights Reserved Reading location - IP/workstation name: [email or web address]
[2019-02-20 16:29] LABS: APPEARANCE,URINE SLIGHTLY-CLOUDY; BILIRUBIN,URINE NEGATIVE (NEGATIVE); COLOR,URINE AMBER; GLUCOSE, URINE NEGATIVE (NEGATIVE); KETONES,URINE TRACE mg/dL (NEGATIVE); LEUKOCYTE ESTERASE,URINE TRACE (NEGATIVE); NITRITE,URINE NEGATIVE (NEGATIVE); PROTEIN,URINE 30 mg/dL (NEGATIVE); URINE SPECIFIC GRAVITY 1.029; UROBILINOGEN,URINE NEGATIVE mg/dL (<2.0)
--- NOTE | 2019-02-20 17:00 | RADIOLOGY REPORT (SQ) ---
EXAM DESCRIPTION: VENOUS BILATERAL LOWER COMPLETED DATE/TIME: 02/20/2019 4:49 pm REASON FOR STUDY: INCREASE WBC, TEMP OF 100.1, S/P CHOLECYSTECTOMY COMPARISON: None. TECHNIQUE: Dynamic and static martinez scale and color images acquired of both lower extremity venous sy stems. Selected spectral images acquired with additional compression and augmentation maneuvers. Imag es stored on PACS. LIMITATIONS: None. FINDINGS: RIGHT LEG COMMON FEMORAL AND FEMORAL: Normal phasicity, compression and augmentation. No visualized echogenic m aterial on martinez scale. No defects on color images. POPLITEAL: Normal compression and augmentation. No visualized echogenic material on martinez scale. No de fects on color images. CALF VESSELS: Normal compression and augmentation. No visualized echogenic material on martinez scale. No defects on color image. GSV AND SSV: Normal compression. No visualized echogenic material on martinez scale. No defects on color images. ANY DEEP VENOUS INSUFFICIENCY: Not evaluated. ANY EVIDENCE OF POPLITEAL CYST: No. OTHER: No other significant finding. LEFT LEG COMMON FEMORAL AND FEMORAL: Normal phasicity, compression and augmentation. No visualized echogenic m aterial on martinez scale. No defects on color images. POPLITEAL: Normal compression and augmentation. No visualized echogenic material on martinez scale. No de fects on color images. CALF VESSELS: Normal compression and augmentation. No visualized echogenic material on martinez scale. No defects on color images. GSV AND SSV: Normal compression. No visualized echogenic material on martinez scale. No defects on color images. ANY DEEP VENOUS INSUFFICIENCY: Not evaluated. ANY EVIDENCE POPLITEAL CYST: No. OTHER: No other significant finding. IMPRESSION: NO EVIDENCE DVT OR SVT IN EITHER LEG. TECHNICAL DOCUMENTATION: JOB ID: [id number] [employer]- All Rights Reserved Reading location - IP/workstation name: [email or web address]
[2019-02-20] MEDS: HYDROMORPHONE HCL INJ/PF 2 MG/ML AMPULE IV PRN ×2 (18:19→23:09)
[2019-02-20] MEDS ORDERED: GLUCAGON,HUMAN RECOMB 1 MG INJ SUBCUT PRN (19:52)
[2019-02-20] MEDS ORDERED: DEXTROSE 40% GEL 15 GM TUBE PO PRN ×2 (19:52)
[2019-02-20] MEDS ORDERED: DEXTROSE 50%-WATER 25 GM/50 ML DISP.SYRIN IV PRN ×2 (19:52)
[2019-02-20] MEDS: MORPHINE SULFATE 10 MG/ML INJ IV PRN (21:49)
[2019-02-20] MEDS: MAG HYDROX/AL HYDROX/SIMETH SUSP 30 ML UDCUP PO PRN (21:49)
[2019-02-20] MEDS: POTASSI CL 20 MEQ/D5NS 1L 20 MEQ/1,000 ML RTUINJ IV PRN (22:42)
[2019-02-21] MEDS: KETOROLAC TROMETHAMINE INJ/PF 30 MG/1 ML SDV IV PRN (00:34)
[2019-02-21] MEDS: MEROPENEM 1 GM in NORMAL SALINE 50 ML IV SCH ×3 (01:33→18:00)
[2019-02-21] MEDS: METOCLOPRAMIDE HCL 10 MG TABLET PO SCH ×3 (05:16→18:00)
[2019-02-21] MEDS: FAMOTIDINE INJ/PF 20 MG/2 ML SDV IV SCH (05:17)
[2019-02-21 06:05] LABS: HEMATOCRIT 32.2 % (37.9-51.0); MEAN CORPUSCULAR HEMOGLOBIN 30.1 pg (27.0-33.4); MEAN CORPUSCULAR VOLUME 89 fl (80-97); PLATELET COUNT 337 10^3/uL (150-450); RED BLOOD COUNT 3.64 10^6/uL (4.35-5.55); RED CELL DISTRIBUTION WIDTH 12.9 % (11.5-14.0); WHITE BLOOD COUNT 16.3 10^3/uL (4.0-10.5)
[2019-02-21] MEDS: HYDROMORPHONE HCL INJ/PF 2 MG/ML AMPULE IV PRN ×3 (06:26→20:43)
[2019-02-21 06:29] LABS: ALBUMIN 2.6 g/dL (3.5-5.0); ALKALINE PHOSPHATASE 65 U/L (38-126); ANION GAP 10 (5-19); ASPARTATE AMINO TRANSFERASE 42 U/L (17-59); BILIRUBIN,DIRECT 0.2 mg/dL (0.0-0.4); BILIRUBIN,TOTAL 0.6 mg/dL (0.2-1.3); BLOOD UREA NITROGEN 15 mg/dL (7-20); CALCIUM 7.8 mg/dL (8.4-10.2); CARBON DIOXIDE 27 mmol/L (22-30); CHLORIDE 101 mmol/L (98-107); GLUCOSE 124 mg/dL (75-110); POTASSIUM 4.2 mmol/L (3.6-5.0); TOTAL PROTEIN 5.1 g/dL (6.3-8.2)
[2019-02-21] MEDS: POTASSI CL 20 MEQ/D5NS 1L 20 MEQ/1,000 ML RTUINJ IV PRN ×2 (06:29→18:00)
[2019-02-21 06:33] LABS: ABSOLUTE LYMPHOCYTES# (MANUAL) 0.5 10^3/uL (0.5-4.7); BAND NEUTROPHILS % (MANUAL) 7 % (3-5); BASOPHILS % (MANUAL) 0 % (0-2); EOSINOPHILS % (MANUAL) 0 % (0-6); LYMPHOCYTES % (MANUAL) 3 % (13-45); MONOCYTES % (MANUAL) 6 % (3-13); SEGMENTED NEUTROPHILS % (MAN) 84 % (42-78); TOTAL CELLS COUNTED 100
[2019-02-21 06:35] LABS: OVALOCYTES SLIGHT; PLATELET COMMENT ADEQUATE; POIKILOCYTOSIS SLIGHT; POLYCHROMASIA SLIGHT; TEAR DROP CELLS SLIGHT; TOXIC GRANULATION 1+; TOXIC VACUOLATION PRESENT
[2019-02-21] MEDS: ENOXAPARIN SODIUM INJ 40 MG/0.4 ML DISP.SYRIN SUBCUT SCH (08:15)
--- NOTE | 2019-02-21 09:18 | PDOC PROGRESS REPORT ---
Subjective Progress Note for:: 02/21/19 Subjective:: Patient comfortable, denies abdominal pain nausea vomiting, 3 bowel movements yesterday Reason For Visit: ACUTE CHOLECYSTITIS,S/P LAP BRENDA,S/P REPAIR OF Physical Exam Vital Signs: Temp Pulse Resp BP Pulse Ox 98.6 F 113 H 20 108/64 90 L 02/21/19 07:44 02/21/19 07:44 02/21/19 07:44 02/21/19 07:44 02/21/19 07:44 Intake & Output 02/20/19 02/21/19 02/22/19 06:59 06:59 06:59 Intake Total 2260 3357 Output Total 130 130 Balance 2130 3227 Weight 94.5 kg General appearance: PRESENT: no acute distress Respiratory exam: PRESENT: clear to auscultation tiki Cardiovascular exam: PRESENT: RRR GI/Abdominal exam: PRESENT: normal bowel sounds, soft, other - Right upper quadrant incision clean dry and intact; right lateral abdominal drain filled with serous fluid no bile noted Results Laboratory Results: 02/21/19 04:51 02/21/19 04:51 02/20/19 02/20/19 02/20/19 13:20 13:20 14:07 WBC 19.8 H RBC 3.46 L Hgb 10.4 L Hct 30.2 L MCV 87 MCH 30.2 MCHC 34.6 RDW 12.8 Plt Count 320 Seg Neutrophils % Not Reportable Sodium 135.9 L Potassium 3.8 Chloride 103 Carbon Dioxide 24 Anion Gap 9 BUN 15 Creatinine 1.05 Est GFR ( Amer) > 60 Glucose 100 Calcium 8.2 L Total Bilirubin 0.7 AST 49 Alkaline Phosphatase 69 Total Protein 5.3 L Albumin 2.7 L Urine Color HILDA Urine Appearance SLIGHTLY-CLOUDY Urine pH 5.0 Ur Specific [place] 1.029 Urine Protein 30 H Urine Glucose (UA) NEGATIVE Urine Ketones TRACE H Urine Blood NEGATIVE Urine Nitrite NEGATIVE Ur Leukocyte Esterase TRACE H Urine WBC (Auto) 3 Urine RBC (Auto) 2 02/21/19 02/21/19 04:51 04:51 WBC 16.3 H RBC 3.64 L Hgb 11.0 L Hct 32.2 L MCV 89 MCH 30.1 MCHC 34.0 RDW 12.9 Plt Count 337 Seg Neutrophils % Not Reportable Sodium 137.7 Potassium 4.2 Chloride 101 Carbon Dioxide 27 Anion Gap 10 BUN 15 Creatinine 1.13 Est GFR ( Amer) > 60 Glucose 124 H Calcium 7.8 L Total Bilirubin 0.6 AST 42 Alkaline Phosphatase 65 Total Protein 5.1 L Albumin 2.6 L Urine Color Urine Appearance Urine pH Ur Specific [place] Urine Protein Urine Glucose (UA) Urine Ketones Urine Blood Urine Nitrite Ur Leukocyte Esterase Urine WBC (Auto) Urine RBC (Auto) 02/19/19 14:06 Troponin I < 0.012 Impressions: Abdomen Ultrasound 02/13/19 15:50 IMPRESSION: Cholelithiasis. Cannot exclude acute cholecystitis due to a positive sonographic Asutin's. Hepatic steatosis. Cholangiogram 02/14/19 00:00 IMPRESSION: IMAGE(S) OBTAINED DURING PROCEDURE. Fluoroscopy 02/14/19 00:00 IMPRESSION: Please see combined report for performance of procedure and radiologic supervision and interpretation. KUB X-Ray 02/14/19 19:05 IMPRESSION: Postsurgical changes. NG tube is coiled in the left upper quadrant most likely stomach. Gas pattern is nonspecific. Abdomen/Pelvis CT 02/20/19 00:00 IMPRESSION: Recent cholecystectomy. Very small amount of air and fluid are present in the gallbladder fossa. No evidence of focal abscess. There is free fluid in the left lateral gutter. Largest transverse diameter is 2.0 cm. This extends approximately 8 cm cranial caudally. Small bilateral pleural effusions and basilar atelectasis. Chest X-Ray 02/20/19 00:00 IMPRESSION: Basilar atelectasis and small effusions. Suspect small amount of pneumoperitoneum probably related to recent surgery. Venous Doppler Study 02/20/19 00:00 IMPRESSION: NO EVIDENCE DVT OR SVT IN EITHER LEG. Assessment & Plan - Diagnosis (1) Injury of bile duct Qualifiers: Encounter type: initial encounter Qualified Code(s): S36.13XA - Injury of bile duct, initial encounter Is this a current diagnosis for this admission?: Yes (2) Acute cholecystitis due to biliary calculus Is this a current diagnosis for this admission?: Yes (3) Cholelithiasis Qualifiers: Cholelithiasis location: gallbladder Cholecystitis presence: with cholecystitis Cholecystitis acuity: acute and chronic Biliary obstruction: without biliary obstruction Qualified Code(s): K80.12 - Calculus of gallbla dder with acute and chronic cholecystitis without obstruction Is this a current diagnosis for this admission?: Yes - Time Time Spent with patient: 35 or more minutes - Plan Summary Plan Summary: Assessment: Postop day #1 following attempted laparoscopic cholecystectomy, open cholecystectomy, repair of right biliary duct injury Vital signs stable, patient afebrile Patient feeling well, denies abdominal pain no other systemic symptoms Blood per cell count improving down to 16,000 today Patient still n.p.o. Physical exam unremarkable JENNIFER drain output decreased to 130 mL a day Fever work-up done yesterday (chest x-ray, UA, other lower extremity duplex, wound exam) negative Plan: PICC line today Abdominal obstructive series today Continue n.p.o. Continue meropenem Start TPN following the placement of PICC line today Waiting for results of blood culture and urine cultures obtained yesterday
--- NOTE | 2019-02-21 10:41 | RADIOLOGY REPORT (SQ) ---
EXAM DESCRIPTION: ACUTE ABDOMEN SERIES COMPLETED DATE/TIME: 02/21/2019 10:25 am REASON FOR STUDY: f/u s/p laparotomy; f/u free air on CXray 02/20 COMPARISON: CT abdomen pelvis dated 02/20/2019. NUMBER OF VIEWS: Three views. TECHNIQUE: Frontal chest, supine abdomen and upright/decubitus abdomen radiographic images acquired. LIMITATIONS: None. FINDINGS: CHEST: Small pleural effusions with linear atelectasis in the right lung base. FREE AIR: Again small pocket of air is demonstrated just underneath the left hemidiaphragm. This is grossly unchanged from yesterday study. CT was reviewed and demonstrates the small pocket of air as well. BOWEL GAS PATTERN: Scattered air-fluid levels within small bowel. This most likely represents postop erative ileus. CALCIFICATIONS: No suspicious calcifications. HARDWARE: Surgical clips are in place. Drainage tube remains in place in the right upper quadrant. SOFT TISSUES: No gross mass or suggestion of organomegaly. BONES: No acute fracture. No worrisome bone lesions. OTHER: No other significant finding. IMPRESSION: Probable postoperative ileus. Minimal free air remains in the left upper quadrant. TECHNICAL DOCUMENTATION: JOB ID: [id number] [employer]- All Rights Reserved Reading location - IP/workstation name: [email or web address]
[2019-02-21] MEDS: GLYCERIN (ADULT) SUPP.RECT PR SCH ×2 (12:01→17:54)
[2019-02-21] MEDS: MORPHINE SULFATE 10 MG/ML INJ IV PRN (12:15)
[2019-02-21] MEDS: MAG HYDROX/AL HYDROX/SIMETH SUSP 30 ML UDCUP PO PRN ×2 (12:15→20:37)
--- NOTE | 2019-02-21 12:21 | RADIOLOGY REPORT (SQ) ---
EXAM DESCRIPTION: PICC INSERTION; FLUORO/CV PLACEMENT; U/S GUIDE FOR VASCULAR ACCESS COMPLETED DATE/TIME: 02/21/2019 10:56 am REASON FOR STUDY: need IV access, TPN; IV ABX COMPARISON: Two-view chest 02/20/2019, Three-way abdomen series 02/21/2019 FLUOROSCOPY TIME: 40 seconds 1 ultrasound and 1 digital fluoroscopic images saved to PACS. TECHNIQUE: Fluoroscopic and ultrasound guided PICC placement. LIMITATIONS: None. PROCEDURE: After written consent and assessment were obtained, the patient was brought into the fluo roscopy room and placed supine on the table. Ultrasound evaluation of potential access sites were per formed. After successfully identifying a patent left basilic vein, the left arm was prepped and drape d in a sterile fashion along with the ultrasound probe. The entry site was anesthetized with 1% lidoc claudio. A 21 gauge 7 cm needle was advanced through the skin and into the basilic vein under live ultra sound guidance. An ultrasound image was saved to PACS confirming access site. A .018 guide wire was then inserted through the needle and into the venous system. The needle was then removed and an 11 b lade scalpel was used to make a 1cm skin incision. A 5 fr peel-away sheath was advanced over the wir e and into the venous system. A measurement was then made using the existing wire and live fluoroscop ic guidance. The wire was then removed and trimmed. The PICC was advanced through the peel-away sheat h and into the venous system. The peel-away sheath was removed and the catheter was adhered to the pa tients arm with a stat lock. The catheter was then aspirated and flushed and a sterile bandage was pl aced over the access site. A fluoroscopic spot image was saved to PACS confirming the catheter tip w ithin the superior vena cava. IMPRESSION: SUCCESSFUL PLACEMENT OF A 5 FR DUAL LUMEN 48 CM PICC IN THE LEFT BASILIC VEIN. COMMENT: Patient medication list reviewed: Yes- Quality ID# 130:Eligible professional attests to doc umenting in the medical record they obtained, updated, or reviewed the patient's current medications. . Quality ID 145: Final reports for procedures using fluoroscopy that document radiation exposure alpesh amina, or exposure time and number of fluorographic images (if radiation exposure indices are not avail able) Quality ID #76: The patient was prepped and draped using maximum sterile barrier technique including cap, mask, sterile gown, sterile gloves, a large sterile sheet, hand hygiene, and 2% Chlorhexidine fo r cutaneous antisepsis. When ultrasound is used, sterile ultrasound techniques are followed requiring sterile gel and sterile probes. TECHNICAL DOCUMENTATION: JOB ID: [id number] [employer]- All Rights Reserved rev-08/25 Reading location - IP/workstation name: [email or web address]
[2019-02-21] MEDS ORDERED: NORMAL SALINE 10 ML SDV (AFTER EACH USE) IV PRN (13:00)
[2019-02-21] MEDS ORDERED: DEXTROSE 10%-WATER 1,000 ML IV PRN (14:30)
[2019-02-21] MEDS ORDERED: AMINO ACIDS 5 %/DEXTROSE 20 % 1,000 ML IV PRN (14:30)
[2019-02-21] MEDS ORDERED: DEXTROSE 50%-WATER SYRINGE 12.5 GM/25 ML DOSE IV PRN (14:30)
[2019-02-21] MEDS ORDERED: GLUCAGON,HUMAN RECOMB 1 MG INJ IM PRN (14:30)
[2019-02-21] MEDS ORDERED: DEXTROSE 40% GEL 15 GM TUBE X 2 PO PRN (14:30)
[2019-02-21] MEDS ORDERED: DEXTROSE 40% GEL 15 GM TUBE PO PRN (14:30)
[2019-02-21] MEDS ORDERED: DEXTROSE 50%-WATER SYRINGE 25 GM/50 ML DOSE IV PRN (14:30)
[2019-02-21] MEDS: INSULIN REG, HUMAN 100 UNIT/ML 3 ML VIAL (PYX) SUBCUT SCH (17:43)
[2019-02-21] MEDS: AMINO ACIDS 5 %/DEXTROSE 20 % 1,000 ML IV PRN (18:18)
[2019-02-21] MEDS: NORMAL SALINE 10 ML SDV (SCHEDULED) IV SCH (21:25)
[2019-02-22] MEDS: METOCLOPRAMIDE HCL 10 MG TABLET PO SCH ×5 (00:41→23:50)
[2019-02-22] MEDS: MAG HYDROX/AL HYDROX/SIMETH SUSP 30 ML UDCUP PO PRN (00:42)
[2019-02-22] MEDS: INSULIN REG, HUMAN 100 UNIT/ML 3 ML VIAL (PYX) SUBCUT SCH ×4 (00:42→18:00)
[2019-02-22] MEDS: MEROPENEM 1 GM in NORMAL SALINE 50 ML IV SCH ×3 (01:02→17:57)
[2019-02-22] MEDS: HYDROMORPHONE HCL INJ/PF 2 MG/ML AMPULE IV PRN ×3 (05:39→23:49)
[2019-02-22] MEDS: POTASSI CL 20 MEQ/D5NS 1L 20 MEQ/1,000 ML RTUINJ IV PRN ×2 (07:48→19:43)
[2019-02-22 08:11] LABS: ABSOLUTE EOSINOPHILS # (AUTO) 0.1 10^3/uL (0.0-0.6); ABSOLUTE LYMPHOCYTES (AUTO) 0.6 10^3/uL (0.5-4.7); ABSOLUTE MONOCYTES (AUTO) 0.9 10^3/uL (0.1-1.4); BASOPHILS % (AUTO) 0.3 % (0-2); EOSINOPHILS % (AUTO) 0.6 % (0-6); HEMATOCRIT 26.4 % (37.9-51.0); LYMPHOCYTES % (AUTO) 5.5 % (13-45); MEAN CORPUSCULAR HEMOGLOBIN 30.1 pg (27.0-33.4); MEAN CORPUSCULAR VOLUME 88 fl (80-97); MONOCYTES % (AUTO) 7.9 % (3-13); PLATELET COUNT 312 10^3/uL (150-450); RED BLOOD COUNT 2.99 10^6/uL (4.35-5.55); SEGMENTED NEUTROPHILS % (AUTO) 85.7 % (42-78); TOTAL CELLS COUNTED % (AUTO) 100 %; WHITE BLOOD COUNT 11.7 10^3/uL (4.0-10.5)
--- NOTE | 2019-02-22 08:19 | PDOC PROGRESS REPORT ---
Subjective Progress Note for:: 02/22/19 Subjective:: feels better passing flatus,stool Reason For Visit: ACUTE CHOLECYSTITIS,S/P LAP BRENDA,S/P REPAIR OF Physical Exam Vital Signs: Temp Pulse Resp BP Pulse Ox 100.7 F H 108 H 18 110/70 94 02/22/19 00:16 02/22/19 00:16 02/21/19 20:45 02/22/19 00:16 02/22/19 00:16 Intake & Output 02/21/19 02/22/19 02/23/19 06:59 06:59 06:59 Intake Total 3357 3270 Output Total 130 40 Balance 3227 3230 Weight 94.5 kg 95.2 kg General appearance: PRESENT: no acute distress Head exam: PRESENT: normocephalic Eye exam: PRESENT: EOMI Ear exam: PRESENT: normal external ear exam Mouth exam: PRESENT: moist Neck exam: PRESENT: full ROM Respiratory exam: PRESENT: clear to auscultation tiki Cardiovascular exam: PRESENT: RRR Pulses: PRESENT: normal radial pulses, normal femoral pulses GI/Abdominal exam: PRESENT: soft - softly distended, min pain, no reboulnd Rectal exam: PRESENT: deferred Extremities exam: PRESENT: full ROM Musculoskeletal exam: PRESENT: full ROM Neurological exam: PRESENT: alert, awake, oriented to person, oriented to place Psychiatric exam: PRESENT: appropriate affect Skin exam: PRESENT: dry Results Laboratory Results: 02/20/19 14:08 Sputum Gram Stain - Final 02/20/19 14:08 Sputum Sputum Culture - Final 02/19/19 14:06 Troponin I < 0.012 Impressions: Abdomen Ultrasound 02/13/19 15:50 IMPRESSION: Cholelithiasis. Cannot exclude acute cholecystitis due to a positive sonographic Austin's. Hepatic steatosis. Cholangiogram 02/14/19 00:00 IMPRESSION: IMAGE(S) OBTAINED DURING PROCEDURE. Fluoroscopy 02/14/19 00:00 IMPRESSION: Please see combined report for performance of procedure and radiologic supervision and interpretation. KUB X-Ray 02/14/19 19:05 IMPRESSION: Postsurgical changes. NG tube is coiled in the left upper quadrant most likely stomach. Gas pattern is nonspecific. Abdomen/Pelvis CT 02/20/19 00:00 IMPRESSION: Recent cholecystectomy. Very small amount of air and fluid are present in the gallbladder fossa. No evidence of focal abscess. There is free fluid in the left lateral gutter. Largest transverse diameter is 2.0 cm. This extends approximately 8 cm cranial caudally. Small bilateral pleural effusions and basilar atelectasis. Chest X-Ray 02/20/19 00:00 IMPRESSION: Basilar atelectasis and small effusions. Suspect small amount of pneumoperitoneum probably related to recent surgery. Venous Doppler Study 02/20/19 00:00 IMPRESSION: NO EVIDENCE DVT OR SVT IN EITHER LEG. Guidance Fluoroscopy 02/21/19 00:00 IMPRESSION: SUCCESSFUL PLACEMENT OF A 5 FR DUAL LUMEN 48 CM PICC IN THE LEFT BASILIC VEIN. Interventional Vascular Procedure 02/21/19 00:00 IMPRESSION: SUCCESSFUL PLACEMENT OF A 5 FR DUAL LUMEN 48 CM PICC IN THE LEFT BASILIC VEIN. Acute Abdomen Series 02/21/19 06:00 IMPRESSION: Probable postoperative ileus. Minimal free air remains in the left upper quadrant. PICC Line Insertion 02/21/19 07:00 IMPRESSION: SUCCESSFUL PLACEMENT OF A 5 FR DUAL LUMEN 48 CM PICC IN THE LEFT BASILIC VEIN. Assessment & Plan - Time Time Spent with patient: 35 or more minutes - Plan Summary Plan Summary: still with min distended abd, no pain, sl tympanitic passing stool/flatus feels ok, however still iwth low grade fever will repeat ct today to r/o any fluid collections cont iv abx
[2019-02-22 08:25] LABS: ALBUMIN 2.4 g/dL (3.5-5.0); ALKALINE PHOSPHATASE 54 U/L (38-126); ANION GAP 6 (5-19); ASPARTATE AMINO TRANSFERASE 34 U/L (17-59); BILIRUBIN,DIRECT 0.2 mg/dL (0.0-0.4); BILIRUBIN,TOTAL 0.4 mg/dL (0.2-1.3); BLOOD UREA NITROGEN 15 mg/dL (7-20); CALCIUM 7.4 mg/dL (8.4-10.2); CARBON DIOXIDE 26 mmol/L (22-30); CHLORIDE 106 mmol/L (98-107); GLUCOSE 121 mg/dL (75-110); POTASSIUM 4.3 mmol/L (3.6-5.0)
[2019-02-22] MEDS: GLYCERIN (ADULT) SUPP.RECT PR SCH ×2 (10:00→18:00)
--- NOTE | 2019-02-22 11:26 | RADIOLOGY REPORT (SQ) ---
EXAM DESCRIPTION: CT ABD/PELVIS NO ORAL OR IV COMPLETED DATE/TIME: 02/22/2019 10:45 am REASON FOR STUDY: f/u hepaticojejunostomy for rt hepatic duct injury COMPARISON: CT of the abdomen and pelvis without contrast from 02/20/2019. TECHNIQUE: CT scan of the abdomen and pelvis performed without intravenous or oral contrast. Images reviewed with lung, soft tissue, and bone windows. Reconstructed coronal and sagittal MPR images revi ewed. All images stored on PACS. All CT scanners at this facility use dose modulation, iterative reconstruction, and/or weight based d osing when appropriate to reduce radiation dose to as low as reasonably achievable (ALARA). [facility]: Dose Right [facility]: CareDose [facility]: Dose Right [facility]: Teradose 4D [facility]: [employer] RADIATION DOSE: CT Rad equipment meets quality standard of care and radiation dose reduction techniq ues were employed. CTDIvol: 9.8 mGy. DLP: 616 mGy-cm.mGy. LIMITATIONS: None. FINDINGS: LOWER CHEST: Bilateral pleural effusions. The are areas of consolidation with intersperse d bronchograms in the lower lobes (left greater than right) could represent atelectasis or pneumonia. The heart is enlarged. There is mild atherosclerotic calcification of the coronary arteries. Ther e is no pericardial effusion. NON-CONTRASTED LIVER, SPLEEN, ADRENALS: Evaluation is limited due to the absence of intravenous contr ast. The liver morphology is non cirrhotic. The low attenuation of hepatic parenchyma is consistent with hepatic steatosis. The spleen is normal in size. PANCREAS: No acute gross abnormality of the pancreas. GALLBLADDER: Status post cholecystectomy. There is a Hank-Bobo drain that extends up to the gall bladder fossa. The distended air-filled structure the gallbladder fossa on image 31 of series 2 is p resumed to represent a loop of bowel. There is a trace amount of gas and fluid in the gallbladder fo ssa and no drainable fluid collection. RIGHT KIDNEY AND URETER: Evaluation is limited due to the absence of intravenous contrast. There is no hydronephrosis, nephrolithiasis, hydroureter or ureterolithiasis. LEFT KIDNEY AND URETER: Evaluation is limited due to the absence of intravenous contrast. There is n o hydronephrosis, nephrolithiasis, hydroureter or ureterolithiasis. AORTA AND RETROPERITONEUM: No aneurysm or dissection of the abdominal aorta. BOWEL AND PERITONEAL CAVITY: There are 2 sites of bowel anastomosis; the 1st is near the gallbladder fossa on image 28 of series 2 and the 2nd is in the mid abdomen (image 64 series 2). The degree of d ilatation of the jejunum proximal to the mid abdominal anastomosis has decreased from 02/20/2019. Th ere is no evidence of obstruction. The loculated fluid collection that extends along left paracolic gutter has increased from the prior CT and it measures up to 3.8 cm in transverse diameter compared t o 2.1 cm. The foci of free intra-abdominal and subcutaneous air are expected in the recent postoperative period APPENDIX: Normal. PELVIS, BLADDER, AND ABDOMINAL WALL:The urinary bladder is partially distended. There is no pelvic a denopathy, free fluid or mass BONES: No acute findings. OTHER: No other finding. IMPRESSION: 1. Status post cholecystectomy and hepaticojejunostomy. The distended air-filled struct ure the gallbladder fossa on image 31 of series 2 is presumed to represent a loop of bowel. There is a trace amount of gas and fluid in the gallbladder fossa and no drainable fluid collection. 2. The loculated fluid collection that extends along left paracolic gutter has increased from the deborah or CT and it measures up to 3.8 cm in transverse diameter compared to 2.1 cm. 3. Bilateral pleural effusions with areas of consolidation in the lower lobes that could represent a telectasis or pneumonia. Correlation with clinical findings is recommended. COMMENT: Quality ID # 436: Final reports with documentation of one or more dose reduction techniques (e.g., Automated exposure control, adjustment of the mA and/or kV according to patient size, use of iterative reconstruction technique) TECHNICAL DOCUMENTATION: JOB ID: [id number] [employer]- All Rights Reserved Reading location - IP/workstation name: [facility]-
[2019-02-22] MEDS: ENOXAPARIN SODIUM INJ 40 MG/0.4 ML DISP.SYRIN SUBCUT SCH (11:44)
[2019-02-22 13:26] LABS: INTERNATIONAL RATION (INR) 1.19; PROTHROMBIN TIME 15.2 SEC (11.4-15.4)
[2019-02-22] MEDS ORDERED: FENTANYL CITRATE INJ/PF 100 MCG/2 ML AMPUL ONE (14:01)
[2019-02-22] MEDS: NORMAL SALINE 10 ML SDV (SCHEDULED) IV SCH ×2 (15:53→21:22)
--- NOTE | 2019-02-22 16:16 | RADIOLOGY REPORT (SQ) ---
EXAM DESCRIPTION: CT DRAINAGE RETRO/PERITONEAL COMPLETED DATE/TIME: 02/22/2019 3:11 pm REASON FOR STUDY: fluid collection left abd. COMPARISON: CT of the abdomen and pelvis without contrast from 02/22/2019. FLUORO TIME: 1.4 seconds 120 images saved to PACS. LIMITATIONS: None. PROCEDURE: The procedure, risks, benefits, and alternatives were discussed with the patient in the p reprocedural area, and all questions were answered. Informed consent was obtained verbally and in wri ting. The patient was then brought to the CT suite, positioned supine on the CT gurney, and a time-out was performed. After that, axial images of the abdomen were obtained for targeting of the intraabdominal collection that extends from the LUQ to the LLQ. Based on review of the axial images an appropriate access site was selected on the skin. The area around selected access site was then prepped and draped with 2% chlorhexidine utilizing aristides dard sterile technique. After that, the access site was infiltrated with 1% lidocaine and an incisio n was made perpendicular to the skin surface with a #11 blade. An 18 gauge access needle was then adv anced through the skin incision and into the intraabdominal collection utilizing CT fluoroscopic guid ance. Next the needle was exchanged over a 0.038 inch guidewire for a 10 Slovak dilator, which was us ed to dilate the percutaneous track. The dilator was then removed and a 10 Slovak all-purpose drainag e catheter was advanced over the guidewire into the intraabdominal collection. After that, the guidew malka and inner dilator of the catheter were removed and the catheter was formed within the collection. Proper position of catheter was then confirmed with repeat axial images of the abdomen; these images were reviewed and it confirmed proper position of the catheter. After that, the catheter was locked in position, secured in place with a StayFix device and attached attached to a drainage bag. The patient tolerated the procedure well without immediate complication. At the end of the procedure the patient's condition was unchanged from the preprocedural baseline. IV conscious sedation was administered at the direction of the performing physician by a sánchez yanes. 0 milligrams of Versed and 50 micrograms of fentanyl were administered. Physiologic monitoring was provided before, during, and after sedation. The total sedation time was 20 minutes. Documentation of [id number] time the proceduralist spent monitoring the patient: 15 minutes. IMPRESSION: SUCCESSFUL ULTRASOUND-GUIDED PLACEMENT OF A 10 [place] ALL-PURPOSE DRAINAGE CATHETER INTO THE INTRA-ABDOMINAL FLUID COLLECTION IN THE LEFT HEMIABDOMEN. APPROXIMATELY 120 ML OF VISCOUS FLUID WAS ASPIRATED FROM THE COLLECTION AND SUBMITTED FOR ANALYSIS. COMMENT: Patient medication list reviewed:Yes- Quality ID# 130:Eligible professional attests to docu menting in the medical record they obtained, updated, or reviewed the patient's current medications. Quality ID #76: The patient was prepped and draped using maximum sterile barrier technique including cap, mask, sterile gown, sterile gloves, a large sterile sheet, hand hygiene, and 2% Chlorhexidine fo r cutaneous antisepsis. When ultrasound is used, sterile ultrasound techniques are followed requiring sterile gel and sterile probes. Quality ID 145: Final reports for procedures using fluoroscopy that document radiation exposure alpesh amina, or exposure time and number of fluorographic images (if radiation exposure indices are not avail able) Quality ID# 436: Final reports with documentation of one or more dose reduction techniques (e.g., Aut omated exposure control, adjustment of the mA and/or kV according to patient size, use of iterative r econstruction technique) TECHNICAL DOCUMENTATION: JOB ID: [id number] [employer]- All Rights Reserved rev-07/26 TECHNIQUE: The procedure, risks, benefits, and alternatives were discussed with the patient in the p reprocedural area, and all questions were answered. Informed consent was obtained verbally and in wri ting. The patient was then brought to the CT suite, positioned supine on the CT gurney, and a time-out was performed. After that, axial images of the abdomen were obtained for targeting of the intraabdominal collection that extends from the LUQ to the LLQ. Based on review of the axial images an appropriate access site was selected on the skin. The area around selected access site was then prepped and draped with 2% chlorhexidine utilizing aristides barrientos sterile technique. After that, the access site was infiltrated with 1% lidocaine and an incisio n was made perpendicular to the skin surface with a #11 blade. An 18 gauge access needle was then adv anced through the skin incision and into the intraabdominal collection utilizing CT fluoroscopic guid ance. Next the needle was exchanged over a 0.038 inch guidewire for a 10 Slovak dilator, which was us ed to dilate the percutaneous track. The dilator was then removed and a 10 Slovak all-purpose drainag e catheter was advanced over the guidewire into the intraabdominal collection. After that, the guidew malka and inner dilator of the catheter were removed and the catheter was formed within the collection. Proper position of catheter was then confirmed with repeat axial images of the abdomen; these images were reviewed and it confirmed proper position of the catheter. After that, the catheter was locked in position, secured in place with a StayFix device and attached attached to a drainage bag. The patient tolerated the procedure well without immediate complication. At the end of the procedure the patient's condition was unchanged from the preprocedural baseline. IV conscious sedation was administered at the direction of the performing physician by a sánchez yanes. 0 milligrams of Versed and 75 micrograms of fentanyl were administered. Physiologic monitoring was provided before, during, and after sedation. The total sedation time was 30 minutes. Documentation of hkhj-[id number] time the proceduralist spent monitoring the patient: 15 minutes. CONTRAST TYPE AND DOSE: None. Reading location - IP/workstation name: [email or web address]
[2019-02-22 17:59] LABS: AMORPHOUS SEDIMENT,URINE 1+ /HPF; APPEARANCE,URINE TURBID; BILIRUBIN,URINE NEGATIVE (NEGATIVE); COLOR,URINE DARK YELLOW; GLUCOSE, URINE 50 mg/dL (NEGATIVE); KETONES,URINE NEGATIVE (NEGATIVE); LEUKOCYTE ESTERASE,URINE NEGATIVE (NEGATIVE); NITRITE,URINE NEGATIVE (NEGATIVE); PROTEIN,URINE 30 mg/dL (NEGATIVE); URINE SPECIFIC GRAVITY 1.024; UROBILINOGEN,URINE NEGATIVE mg/dL (<2.0)
[2019-02-22] MEDS: AMINO ACIDS 5 %/DEXTROSE 20 % 1,000 ML IV PRN (18:56)
[2019-02-23 00:45] LABS: APPEARANCE,URINE CLEAR; BILIRUBIN,URINE NEGATIVE (NEGATIVE); COLOR,URINE YELLOW; GLUCOSE, URINE NEGATIVE (NEGATIVE); KETONES,URINE NEGATIVE (NEGATIVE); LEUKOCYTE ESTERASE,URINE NEGATIVE (NEGATIVE); NITRITE,URINE NEGATIVE (NEGATIVE); PROTEIN,URINE 30 mg/dL (NEGATIVE); URINE SPECIFIC GRAVITY 1.018; UROBILINOGEN,URINE NEGATIVE mg/dL (<2.0)
[2019-02-23] MEDS: MEROPENEM 1 GM in NORMAL SALINE 50 ML IV SCH ×3 (01:07→18:25)
[2019-02-23] MEDS: HYDROMORPHONE HCL INJ/PF 2 MG/ML AMPULE IV PRN ×2 (05:24→07:36)
[2019-02-23] MEDS: METOCLOPRAMIDE HCL 10 MG TABLET PO SCH ×4 (05:51→23:04)
[2019-02-23] MEDS: INSULIN REG, HUMAN 100 UNIT/ML 3 ML VIAL (PYX) SUBCUT SCH ×4 (06:05→18:13)
[2019-02-23 07:13] LABS: ABSOLUTE EOSINOPHILS # (AUTO) 0.3 10^3/uL (0.0-0.6); ABSOLUTE LYMPHOCYTES (AUTO) 0.8 10^3/uL (0.5-4.7); ABSOLUTE MONOCYTES (AUTO) 0.9 10^3/uL (0.1-1.4); ABSOLUTE NEUT (AUTO) 7.3 10^3/uL (1.7-8.2); BASOPHILS % (AUTO) 0.4 % (0-2); EOSINOPHILS % (AUTO) 2.8 % (0-6); HEMATOCRIT 26.8 % (37.9-51.0); HEMOGLOBIN 9.2 g/dL (13.5-17.0); LYMPHOCYTES % (AUTO) 8.7 % (13-45); MEAN CORPUSCULAR HEMOGLOBIN 30.5 pg (27.0-33.4); MEAN CORPUSCULAR HGB CONC 34.5 g/dL (32.0-36.0); MEAN CORPUSCULAR VOLUME 88 fl (80-97); MONOCYTES % (AUTO) 9.6 % (3-13); PLATELET COUNT 293 10^3/uL (150-450); RED BLOOD COUNT 3.04 10^6/uL (4.35-5.55); RED CELL DISTRIBUTION WIDTH 13.1 % (11.5-14.0); SEGMENTED NEUTROPHILS % (AUTO) 78.5 % (42-78); TOTAL CELLS COUNTED % (AUTO) 100 %; WHITE BLOOD COUNT 9.3 10^3/uL (4.0-10.5)
[2019-02-23 07:32] LABS: ALBUMIN 2.4 g/dL (3.5-5.0); ALKALINE PHOSPHATASE 47 U/L (38-126); ANION GAP 8 (5-19); ASPARTATE AMINO TRANSFERASE 67 U/L (17-59); BILIRUBIN,DIRECT 0.2 mg/dL (0.0-0.4); BILIRUBIN,TOTAL 0.4 mg/dL (0.2-1.3); BLOOD UREA NITROGEN 13 mg/dL (7-20); CALCIUM 7.5 mg/dL (8.4-10.2); CARBON DIOXIDE 23 mmol/L (22-30); CHLORIDE 104 mmol/L (98-107); GLUCOSE 138 mg/dL (75-110); POTASSIUM 4.5 mmol/L (3.6-5.0); TOTAL PROTEIN 4.8 g/dL (6.3-8.2)
[2019-02-23] MEDS: ENOXAPARIN SODIUM INJ 40 MG/0.4 ML DISP.SYRIN SUBCUT SCH (07:36)
--- NOTE | 2019-02-23 07:58 | PDOC PROGRESS REPORT ---
Subjective Progress Note for:: 02/23/19 Subjective:: feels better today up ambulating hungry Reason For Visit: ACUTE CHOLECYSTITIS,S/P LAP BRENDA,S/P REPAIR OF Physical Exam Vital Signs: Temp Pulse Resp BP Pulse Ox 100.3 F 105 H 16 115/71 94 02/23/19 00:01 02/23/19 00:01 02/22/19 20:43 02/23/19 00:01 02/23/19 00:01 Intake & Output 02/22/19 02/23/19 02/24/19 06:59 06:59 06:59 Intake Total 3320 2030 Output Total 40 660 Balance 3280 1370 Weight 95.2 kg 95.6 kg General appearance: PRESENT: no acute distress Head exam: PRESENT: normocephalic Eye exam: PRESENT: EOMI Ear exam: PRESENT: normal external ear exam Mouth exam: PRESENT: moist Neck exam: PRESENT: full ROM Respiratory exam: PRESENT: clear to auscultation tiki Cardiovascular exam: PRESENT: RRR Pulses: PRESENT: normal radial pulses, normal femoral pulses Vascular exam: PRESENT: normal capillary refill GI/Abdominal exam: PRESENT: other - perc drain in place has purulent fluid linda bilious decreasing op wound ok. Extremities exam: PRESENT: full ROM Musculoskeletal exam: PRESENT: full ROM Neurological exam: PRESENT: alert, awake, oriented to person, oriented to place Psychiatric exam: PRESENT: appropriate affect Skin exam: PRESENT: dry Results Laboratory Results: 02/23/19 07:04 02/23/19 07:04 02/22/19 02/22/19 02/22/19 07:45 07:45 14:00 WBC 11.7 H RBC 2.99 L Hgb 9.0 L Hct 26.4 L MCV 88 MCH 30.1 MCHC 34.0 RDW 13.0 Plt Count 312 Seg Neutrophils % 85.7 H Sodium 138.0 Potassium 4.3 Chloride 106 Carbon Dioxide 26 Anion Gap 6 BUN 15 Creatinine 0.91 Est GFR ( Amer) > 60 Est GFR (Non-Af Amer) Glucose 121 H Calcium 7.4 L Total Bilirubin 0.4 AST 34 Alkaline Phosphatase 54 Total Protein 5.0 L Albumin 2.4 L Urine Color DARK YELLOW Urine Appearance TURBID Urine pH 5.0 Ur Specific [place] 1.024 Urine Protein 30 H Urine Glucose (UA) 50 H Urine Ketones NEGATIVE Urine Blood SMALL H Urine Nitrite NEGATIVE Ur Leukocyte Esterase NEGATIVE Urine WBC (Auto) 1 Urine RBC (Auto) 2 02/23/19 02/23/19 02/23/19 00:25 05:58 05:58 WBC Cancelled RBC Cancelled Hgb Cancelled Hct Cancelled MCV Cancelled MCH Cancelled MCHC Cancelled RDW Cancelled Plt Count Cancelled Seg Neutrophils % Cancelled Sodium Cancelled Potassium Cancelled Chloride Cancelled Carbon Dioxide Cancelled Anion Gap Cancelled BUN Cancelled Creatinine Cancelled Est GFR ( Amer) Cancelled Est GFR (Non-Af Amer) Cancelled Glucose Cancelled Calcium Cancelled Total Bilirubin Cancelled AST Cancelled Alkaline Phosphatase Cancelled Total Protein Cancelled Albumin Cancelled Urine Color YELLOW Urine Appearance CLEAR Urine pH 7.0 Ur Specific [place] 1.018 Urine Protein 30 H Urine Glucose (UA) NEGATIVE Urine Ketones NEGATIVE Urine Blood NEGATIVE Urine Nitrite NEGATIVE Ur Leukocyte Esterase NEGATIVE Urine WBC (Auto) 1 Urine RBC (Auto) 0 02/23/19 02/23/19 07:04 07:04 WBC 9.3 RBC 3.04 L Hgb 9.2 L Hct 26.8 L MCV 88 MCH 30.5 MCHC 34.5 RDW 13.1 Plt Count 293 Seg Neutrophils % 78.5 H Sodium 135.3 L Potassium 4.5 Chloride 104 Carbon Dioxide 23 Anion Gap 8 BUN 13 Creatinine 0.79 Est GFR ( Amer) > 60 Est GFR (Non-Af Amer) Glucose 138 H Calcium 7.5 L Total Bilirubin 0.4 AST 67 H Alkaline Phosphatase 47 Total Protein 4.8 L Albumin 2.4 L Urine Color Urine Appearance Urine pH Ur Specific [place] Urine Protein Urine Glucose (UA) Urine Ketones Urine Blood Urine Nitrite Ur Leukocyte Esterase Urine WBC (Auto) Urine RBC (Auto) 02/20/19 14:07 Clean Catch Midstream Urine Culture - Final NO GROWTH 2 DAYS 02/19/19 14:06 Troponin I < 0.012 Impressions: Abdomen Ultrasound 02/13/19 15:50 IMPRESSION: Cholelithiasis. Cannot exclude acute cholecystitis due to a positive sonographic Austin's. Hepatic steatosis. Cholangiogram 02/14/19 00:00 IMPRESSION: IMAGE(S) OBTAINED DURING PROCEDURE. Fluoroscopy 02/14/19 00:00 IMPRESSION: Please see combined report for performance of procedure and radiologic supervision and interpretation. KUB X-Ray 02/14/19 19:05 IMPRESSION: Postsurgical changes. NG tube is coiled in the left upper quadrant most likely stomach. Gas pattern is nonspecific. Chest X-Ray 02/20/19 00:00 IMPRESSION: Basilar atelectasis and small effusions. Suspect small amount of pneumoperitoneum probably related to recent surgery. Venous Doppler Study 02/20/19 00:00 IMPRESSION: NO EVIDENCE DVT OR SVT IN EITHER LEG. Guidance Fluoroscopy 02/21/19 00:00 IMPRESSION: SUCCESSFUL PLACEMENT OF A 5 FR DUAL LUMEN 48 CM PICC IN THE LEFT BASILIC VEIN. Interventional Vascular Procedure 02/21/19 00:00 IMPRESSION: SUCCESSFUL PLACEMENT OF A 5 FR DUAL LUMEN 48 CM PICC IN THE LEFT BASILIC VEIN. Acute Abdomen Series 02/21/19 06:00 IMPRESSION: Probable postoperative ileus. Minimal free air remains in the left upper quadrant. PICC Line Insertion 02/21/19 07:00 IMPRESSION: SUCCESSFUL PLACEMENT OF A 5 FR DUAL LUMEN 48 CM PICC IN THE LEFT BASILIC VEIN. Abdomen/Pelvis CT 02/22/19 00:00 IMPRESSION: 1. Status post cholecystectomy and hepaticojejunostomy. The distended air-filled structure the gallbladder fossa on image 31 of series 2 is presumed to represent a loop of bowel. There is a trace amount of gas and fluid in the gallbladder fossa and no drainable fluid collection. 2. The loculated fluid collection that extends along left paracolic gutter has increased from the prior CT and it measures up to 3.8 cm in transverse diameter compared to 2.1 cm. 3. Bilateral pleural effusions with areas of consolidation in the lower lobes that could represent atelectasis or pneumonia. Correlation with clinical findings is recommended. Retroperitoneal Abscess Drainage 02/22/19 00:00 IMPRESSION: SUCCESSFUL ULTRASOUND-GUIDED PLACEMENT OF A 10 [place] ALL-PURPOSE DRAINAGE CATHETER INTO THE INTRA-ABDOMINAL FLUID COLLECTION IN THE LEFT HEMIABDOMEN. APPROXIMATELY 120 ML OF VISCOUS FLUID WAS ASPIRATED FROM THE COLLECTION AND SUBMITTED FOR ANALYSIS. Assessment & Plan - Time Time Spent with patient: 25-34 minutes - Plan Summary Plan Summary: s/p rt hepaticjejunostomy for bile duct injury bile leak decreasing s/p per drain of left sided fluid collection, purulent fluid drained yesteday feels better today with decreasing wbc on meropenium lakesha full liquid diet plan cont current rx trend wbc when full return of bowel function and lakesha diet will dc home with linda in place.
[2019-02-23] MEDS: GLYCERIN (ADULT) SUPP.RECT PR SCH ×2 (10:00→18:26)
[2019-02-23] MEDS: POTASSI CL 20 MEQ/D5NS 1L 20 MEQ/1,000 ML RTUINJ IV PRN ×2 (10:35→20:25)
[2019-02-23 13:19] LABS: PHOSPHORUS 2.1 mg/dL (2.5-4.5)
[2019-02-23] MEDS: KETOROLAC TROMETHAMINE INJ/PF 30 MG/1 ML SDV IV PRN ×2 (13:43→23:04)
[2019-02-23] MEDS: NORMAL SALINE 10 ML SDV (SCHEDULED) IV SCH ×2 (13:44→21:07)
[2019-02-23] MEDS: MAG HYDROX/AL HYDROX/SIMETH SUSP 30 ML UDCUP PO PRN (18:31)
[2019-02-23] MEDS: AMINO ACIDS 5 %/DEXTROSE 20 % 1,000 ML IV PRN (20:04)
[2019-02-24] MEDS: INSULIN REG, HUMAN 100 UNIT/ML 3 ML VIAL (PYX) SUBCUT SCH ×4 (01:02→17:40)
[2019-02-24] MEDS: MEROPENEM 1 GM in NORMAL SALINE 50 ML IV SCH ×3 (01:05→17:45)
[2019-02-24] MEDS: METOCLOPRAMIDE HCL 10 MG TABLET PO SCH ×4 (05:30→23:17)
[2019-02-24] MEDS: POTASSI CL 20 MEQ/D5NS 1L 20 MEQ/1,000 ML RTUINJ IV PRN ×3 (05:30→23:51)
[2019-02-24 05:32] LABS: ABSOLUTE EOSINOPHILS # (AUTO) 0.4 10^3/uL (0.0-0.6); ABSOLUTE LYMPHOCYTES (AUTO) 0.7 10^3/uL (0.5-4.7); ABSOLUTE MONOCYTES (AUTO) 0.7 10^3/uL (0.1-1.4); ABSOLUTE NEUT (AUTO) 6.1 10^3/uL (1.7-8.2); BASOPHILS % (AUTO) 0.5 % (0-2); HEMATOCRIT 27.2 % (37.9-51.0); HEMOGLOBIN 9.3 g/dL (13.5-17.0); LYMPHOCYTES % (AUTO) 9.4 % (13-45); MEAN CORPUSCULAR HEMOGLOBIN 30.2 pg (27.0-33.4); MEAN CORPUSCULAR HGB CONC 34.4 g/dL (32.0-36.0); MEAN CORPUSCULAR VOLUME 88 fl (80-97); MONOCYTES % (AUTO) 8.4 % (3-13); PLATELET COUNT 331 10^3/uL (150-450); RED BLOOD COUNT 3.09 10^6/uL (4.35-5.55); RED CELL DISTRIBUTION WIDTH 13.1 % (11.5-14.0); SEGMENTED NEUTROPHILS % (AUTO) 76.7 % (42-78); TOTAL CELLS COUNTED % (AUTO) 100 %; WHITE BLOOD COUNT 7.9 10^3/uL (4.0-10.5)
[2019-02-24 05:52] LABS: ALBUMIN 2.3 g/dL (3.5-5.0); ALKALINE PHOSPHATASE 49 U/L (38-126); ANION GAP 5 (5-19); ASPARTATE AMINO TRANSFERASE 65 U/L (17-59); BILIRUBIN,DIRECT 0.1 mg/dL (0.0-0.4); BILIRUBIN,TOTAL 0.3 mg/dL (0.2-1.3); BLOOD UREA NITROGEN 12 mg/dL (7-20); CALCIUM 7.8 mg/dL (8.4-10.2); CARBON DIOXIDE 27 mmol/L (22-30); CHLORIDE 105 mmol/L (98-107); GLUCOSE 153 mg/dL (75-110); POTASSIUM 4.8 mmol/L (3.6-5.0); TOTAL PROTEIN 4.8 g/dL (6.3-8.2)
--- NOTE | 2019-02-24 07:32 | PDOC PROGRESS REPORT ---
Subjective Progress Note for:: 02/24/19 Subjective:: feels better today Reason For Visit: ACUTE CHOLECYSTITIS,S/P LAP BRENDA,S/P REPAIR OF Physical Exam Vital Signs: Temp Pulse Resp BP Pulse Ox 98.2 F 87 16 111/80 97 02/23/19 23:52 02/23/19 23:52 02/23/19 23:52 02/23/19 23:52 02/23/19 23:52 Intake & Output 02/23/19 02/24/19 02/25/19 06:59 06:59 06:59 Intake Total 3030 3290 Output Total 660 570 Balance 2370 2720 Weight 95.6 kg 99.8 kg General appearance: PRESENT: no acute distress Head exam: PRESENT: normocephalic Eye exam: PRESENT: EOMI Ear exam: PRESENT: normal external ear exam Mouth exam: PRESENT: moist Neck exam: PRESENT: full ROM Respiratory exam: PRESENT: clear to auscultation tiki Cardiovascular exam: PRESENT: RRR Pulses: PRESENT: normal radial pulses, normal femoral pulses Vascular exam: PRESENT: normal capillary refill GI/Abdominal exam: PRESENT: soft - linda still bilous per drain decreased, bilious wound clean dry. Rectal exam: PRESENT: deferred Extremities exam: PRESENT: full ROM Musculoskeletal exam: PRESENT: full ROM Neurological exam: PRESENT: alert, awake, oriented to person, oriented to place Psychiatric exam: PRESENT: appropriate affect Skin exam: PRESENT: dry Results Laboratory Results: 02/24/19 05:05 02/24/19 05:05 02/23/19 02/23/19 02/24/19 07:04 07:04 05:05 WBC 7.9 RBC 3.09 L Hgb 9.3 L Hct 27.2 L MCV 88 MCH 30.2 MCHC 34.4 RDW 13.1 Plt Count 331 Seg Neutrophils % 76.7 Sodium 135.3 L Potassium 4.5 Chloride 104 Carbon Dioxide 23 Anion Gap 8 BUN 13 Creatinine 0.79 Est GFR ( Amer) > 60 Glucose 138 H Calcium 7.5 L Phosphorus 2.1 L Total Bilirubin 0.4 AST 67 H Alkaline Phosphatase 47 Total Protein 4.8 L Albumin 2.4 L Triglycerides 80 02/24/19 05:05 WBC RBC Hgb Hct MCV MCH MCHC RDW Plt Count Seg Neutrophils % Sodium 136.8 L Potassium 4.8 Chloride 105 Carbon Dioxide 27 Anion Gap 5 BUN 12 Creatinine 0.80 Est GFR ( Amer) > 60 Glucose 153 H Calcium 7.8 L Phosphorus Total Bilirubin 0.3 AST 65 H Alkaline Phosphatase 49 Total Protein 4.8 L Albumin 2.3 L Triglycerides 02/19/19 14:06 Troponin I < 0.012 Impressions: Abdomen Ultrasound 02/13/19 15:50 IMPRESSION: Cholelithiasis. Cannot exclude acute cholecystitis due to a positive sonographic Austin's. Hepatic steatosis. Cholangiogram 02/14/19 00:00 IMPRESSION: IMAGE(S) OBTAINED DURING PROCEDURE. Fluoroscopy 02/14/19 00:00 IMPRESSION: Please see combined report for performance of procedure and radiologic supervision and interpretation. KUB X-Ray 02/14/19 19:05 IMPRESSION: Postsurgical changes. NG tube is coiled in the left upper quadrant most likely stomach. Gas pattern is nonspecific. Chest X-Ray 02/20/19 00:00 IMPRESSION: Basilar atelectasis and small effusions. Suspect small amount of pneumoperitoneum probably related to recent surgery. Venous Doppler Study 02/20/19 00:00 IMPRESSION: NO EVIDENCE DVT OR SVT IN EITHER LEG. Guidance Fluoroscopy 02/21/19 00:00 IMPRESSION: SUCCESSFUL PLACEMENT OF A 5 FR DUAL LUMEN 48 CM PICC IN THE LEFT BASILIC VEIN. Interventional Vascular Procedure 02/21/19 00:00 IMPRESSION: SUCCESSFUL PLACEMENT OF A 5 FR DUAL LUMEN 48 CM PICC IN THE LEFT BASILIC VEIN. Acute Abdomen Series 02/21/19 06:00 IMPRESSION: Probable postoperative ileus. Minimal free air remains in the left upper quadrant. PICC Line Insertion 02/21/19 07:00 IMPRESSION: SUCCESSFUL PLACEMENT OF A 5 FR DUAL LUMEN 48 CM PICC IN THE LEFT BASILIC VEIN. Abdomen/Pelvis CT 02/22/19 00:00 IMPRESSION: 1. Status post cholecystectomy and hepaticojejunostomy. The distended air-filled structure the gallbladder fossa on image 31 of series 2 is presumed to represent a loop of bowel. There is a trace amount of gas and fluid in the gallbladder fossa and no drainable fluid collection. 2. The loculated fluid collection that extends along left paracolic gutter has increased from the prior CT and it measures up to 3.8 cm in transverse diameter compared to 2.1 cm. 3. Bilateral pleural effusions with areas of consolidation in the lower lobes that could represent atelectasis or pneumonia. Correlation with clinical findings is recommended. Retroperitoneal Abscess Drainage 02/22/19 00:00 IMPRESSION: SUCCESSFUL ULTRASOUND-GUIDED PLACEMENT OF A 10 [place] ALL-PURPOSE DRAINAGE CATHETER INTO THE INTRA-ABDOMINAL FLUID COLLECTION IN THE LEFT HEMIABDOMEN. APPROXIMATELY 120 ML OF VISCOUS FLUID WAS ASPIRATED FROM THE COLLECTION AND SUBMITTED FOR ANALYSIS. Assessment & Plan - Time Time Spent with patient: 25-34 minutes - Plan Summary Plan Summary: feels better today passing stools, abd softer, non tender will advance to soft diet home in 1-2 days.
[2019-02-24] MEDS: ENOXAPARIN SODIUM INJ 40 MG/0.4 ML DISP.SYRIN SUBCUT SCH (07:40)
[2019-02-24] MEDS: GLYCERIN (ADULT) SUPP.RECT PR SCH ×2 (09:14→17:41)
[2019-02-24] MEDS: NORMAL SALINE 10 ML SDV (SCHEDULED) IV SCH ×2 (09:26→21:50)
[2019-02-24] MEDS: KETOROLAC TROMETHAMINE INJ/PF 30 MG/1 ML SDV IV PRN ×2 (14:25→21:49)
[2019-02-24] MEDS: AMINO ACIDS 5 %/DEXTROSE 20 % 1,000 ML IV PRN (15:36)
[2019-02-25] MEDS: MEROPENEM 1 GM in NORMAL SALINE 50 ML IV SCH ×2 (01:54→09:10)
[2019-02-25] MEDS: KETOROLAC TROMETHAMINE INJ/PF 30 MG/1 ML SDV IV PRN (04:41)
[2019-02-25 05:51] LABS: ABSOLUTE EOSINOPHILS # (AUTO) 0.4 10^3/uL (0.0-0.6); ABSOLUTE LYMPHOCYTES (AUTO) 1.1 10^3/uL (0.5-4.7); ABSOLUTE MONOCYTES (AUTO) 0.8 10^3/uL (0.1-1.4); ABSOLUTE NEUT (AUTO) 7.7 10^3/uL (1.7-8.2); BASOPHILS % (AUTO) 0.4 % (0-2); EOSINOPHILS % (AUTO) 3.8 % (0-6); HEMATOCRIT 28.5 % (37.9-51.0); HEMOGLOBIN 9.9 g/dL (13.5-17.0); LYMPHOCYTES % (AUTO) 11.2 % (13-45); MEAN CORPUSCULAR HEMOGLOBIN 30.4 pg (27.0-33.4); MEAN CORPUSCULAR HGB CONC 34.6 g/dL (32.0-36.0); MEAN CORPUSCULAR VOLUME 88 fl (80-97); MONOCYTES % (AUTO) 7.7 % (3-13); PLATELET COUNT 383 10^3/uL (150-450); RED BLOOD COUNT 3.24 10^6/uL (4.35-5.55); RED CELL DISTRIBUTION WIDTH 13.5 % (11.5-14.0); SEGMENTED NEUTROPHILS % (AUTO) 76.9 % (42-78); TOTAL CELLS COUNTED % (AUTO) 100 %
[2019-02-25 06:27] LABS: ALBUMIN 2.5 g/dL (3.5-5.0); ALKALINE PHOSPHATASE 62 U/L (38-126); ANION GAP 5 (5-19); ASPARTATE AMINO TRANSFERASE 156 U/L (17-59); BILIRUBIN,DIRECT 0.1 mg/dL (0.0-0.4); BILIRUBIN,TOTAL 0.3 mg/dL (0.2-1.3); BLOOD UREA NITROGEN 13 mg/dL (7-20); CALCIUM 8.1 mg/dL (8.4-10.2); CARBON DIOXIDE 27 mmol/L (22-30); CHLORIDE 106 mmol/L (98-107); GLUCOSE 119 mg/dL (75-110); POTASSIUM 4.7 mmol/L (3.6-5.0)
[2019-02-25] MEDS: AMINO ACIDS 5 %/DEXTROSE 20 % 1,000 ML IV PRN (06:41)
[2019-02-25] MEDS: INSULIN REG, HUMAN 100 UNIT/ML 3 ML VIAL (PYX) SUBCUT SCH ×2 (06:44)
[2019-02-25] MEDS: METOCLOPRAMIDE HCL 10 MG TABLET PO SCH (06:44)
[2019-02-25] MEDS: ENOXAPARIN SODIUM INJ 40 MG/0.4 ML DISP.SYRIN SUBCUT SCH (07:20)
--- NOTE | 2019-02-25 07:40 | PDOC DISCHARGE SUMMARY ---
General - Admit/Disc Date/PCP Admission Date/Primary Care Provider: 02/15/19 12:05 WILDER BOOGIE Admitted for laparoscopic cholecystectomy converted to open cholecystectomy with repair of right hepatic bile duct Discharge Date: 02/25/19 - Discharge Diagnosis Final Diagnosis: Status post laparoscopic converted to open cholecystectomy with Seferino-en-Y hepaticojejunostomy - Assessment Summary: This is a 53-year-old male who is undergoing a laparoscopic cholecystectomy for acute cholecystitis. During laparoscopic cholecystectomy a injury to the right hepatic duct was noted. He then underwent a conversion to open cholecystectomy with Seferino-en-Y hepaticojejunostomy for repair of the right hepatic bile duct. Postoperatively had a routine benign postop course he did develop fever postoperative day [address] scan of his abdomen which showed a small fluid collection in the left paracolic gutter. This was observed for approximately 2 days at which time he noted to have an elevated white blood count a repeat CT scan showed that the fluid collection was slightly larger and therefore underwent percutaneous drainage. Subsequent that his ED defervesced and his white blood count normalized the drain was removed approximately 4 days post placement after the resolution of the fluid collection. His bowel function returned after the percutaneous drainage and is started on a full liquid diet which was advanced to a regular diet by the time of discharge she is afebrile stable vital signs tolerating a regular diet having normal bowel movements his liver function studies are still mildly elevated but trending down his total bilirubin and direct bilirubin are within normal limits. He has a drain in place on the right side a Hank-Bobo which is draining a s mall amount of bilious fluid presumably from a persistent leak at the anastomosis however this is to be observed and will be followed up as an outpatient. Today he will be sent home with Bactrim DS 1 p.o. twice daily Flagyl 250 mg p.o. 3 times daily for approximately 10 days he will be followed up in 1 week after discharge and we will follow his urine output he will require a repeat MRCP to evaluate the integrity of the bile duct repair may need a follow-up ERCP versus transhepatic cholangiogram but this can be done as an outpatient. - Additional Information Resuscitation Status: Full Code Discharge Diet: As Tolerated Discharge Activity: Activity As Tolerated, No Lifting Over 10 Pounds - Patient needs a follow-up with me in surgical clinic on Monday or of this week. Referrals: [facility] [Provider Group] - 02/25/19 1:15 pm Home Medications: Febuxostat [Uloric 80 mg Tablet] 80 mg PO DAILY 02/13/19 Lisinopril [Prinivil 5 mg Tablet] 5 mg PO DAILY 02/13/19 History of Present Illiness History of Present Illness: STEFFANY SEO is a 53 year old male Physical Exam Vital Signs: Temp Pulse Resp BP Pulse Ox 97.6 F 79 16 110/75 96 02/25/19 00:00 02/25/19 00:00 02/25/19 00:00 02/25/19 00:00 02/25/19 00:00 Intake & Output 02/24/19 02/25/19 02/26/19 06:59 06:59 06:59 Intake Total 3290 3230 Output Total 570 90 Balance 2720 3140 Weight 99.8 kg 96 kg Results Laboratory Results: WBC 10.0 10^3/uL (4.0-10.5) 02/25/19 05:26 RBC 3.24 10^6/uL (4.35-5.55) L 02/25/19 05:26 Hgb 9.9 g/dL (13.5-17.0) L 02/25/19 05:26 Hct 28.5 % (37.9-51.0) L 02/25/19 05:26 MCV 88 fl (80-97) 02/25/19 05:26 MCH 30.4 pg (27.0-33.4) 02/25/19 05:26 MCHC 34.6 g/dL (32.0-36.0) 02/25/19 05:26 RDW 13.5 % (11.5-14.0) 02/25/19 05:26 Plt Count 383 10^3/uL (150-450) 02/25/19 05:26 Lymph % (Auto) 11.2 % (13-45) L 02/25/19 05:26 Hanson % (Auto) 7.7 % (3-13) 02/25/19 05:26 Eos % (Auto) 3.8 % (0-6) 02/25/19 05:26 Baso % (Auto) 0.4 % (0-2) 02/25/19 05:26 Absolute Neuts (auto) 7.7 10^3/uL (1.7-8.2) 02/25/19 05:26 Absolute Lymphs (auto) 1.1 10^3/uL (0.5-4.7) 02/25/19 05:26 Absolute Monos (auto) 0.8 10^3/uL (0.1-1.4) 02/25/19 05:26 Absolute Eos (auto) 0.4 10^3/uL (0.0-0.6) 02/25/19 05:26 Absolute Basos (auto) 0.0 10^3/uL (0.0-0.2) 02/25/19 05:26 Total Counted 100 02/21/19 04:51 Seg Neutrophils % 76.9 % (42-78) 02/25/19 05:26 Seg Neuts % (Manual) 84 % (42-78) H 02/21/19 04:51 Band Neutrophils % 7 % (3-5) H 02/21/19 04:51 Lymphocytes % (Manual) 3 % (13-45) L 02/21/19 04:51 Monocytes % (Manual) 6 % (3-13) 02/21/19 04:51 Eosinophils % (Manual) 0 % (0-6) 02/21/19 04:51 Basophils % (Manual) 0 % (0-2) 02/21/19 04:51 Abs Neuts (Manual) 14.8 10^3/uL (1.7-8.2) H 02/21/19 04:51 Abs Lymphs (Manual) 0.5 10^3/uL (0.5-4.7) 02/21/19 04:51 Abs Monocytes (Manual) 1.0 10^3/uL (0.1-1.4) 02/21/19 04:51 Absolute Eos (Manual) 0.0 10^3/uL (0.0-0.6) 02/21/19 04:51 Abs Basophils (Manual) 0.0 10^3/uL (0.0-0.2) 02/21/19 04:51 Nucleated RBCs 1 /100 WBC (0) 02/20/19 13:20 Toxic Granulation 1+ 02/21/19 04:51 Toxic Vacuolation PRESENT 02/21/19 04:51 Dohle Bodies PRESENT 02/20/19 13:20 Platelet Estimate Cancelled 02/23/19 05:58 Platelet Comment ADEQUATE 02/21/19 04:51 Polychromasia SLIGHT 02/21/19 04:51 Poikilocytosis SLIGHT 02/21/19 04:51 Tear Drop Cells SLIGHT 02/21/19 04:51 Ovalocytes SLIGHT 02/21/19 04:51 PT 15.2 SEC (11.4-15.4) 02/22/19 12:25 INR 1.19 02/22/19 12:25 Sodium 138.3 mmol/L (137-145) 02/25/19 05:26 Potassium 4.7 mmol/L (3.6-5.0) 02/25/19 05:26 Chloride 106 mmol/L (98-107) 02/25/19 05:26 Carbon Dioxide 27 mmol/L (22-30) 02/25/19 05:26 Anion Gap 5 (5-19) 02/25/19 05:26 BUN 13 mg/dL (7-20) 02/25/19 05:26 Creatinine 0.80 mg/dL (0.52-1.25) 02/25/19 05:26 Est GFR ( Amer) > 60 (>60) 02/25/19 05:26 Est GFR (Non-Af Amer) Cancelled 02/23/19 05:58 Est GFR (MDRD) Non-Af > 60 (>60) 02/25/19 05:26 Glucose 119 mg/dL (75-110) H 02/25/19 05:26 POC Glucose 133 mg/dL (70-110) H 02/25/19 05:45 Calcium 8.1 mg/dL (8.4-10.2) L 02/25/19 05:26 Phosphorus 2.1 mg/dL (2.5-4.5) L 02/23/19 07:04 Total Bilirubin 0.3 mg/dL (0.2-1.3) 02/25/19 05:26 Direct Bilirubin 0.1 mg/dL (0.0-0.4) 02/25/19 05:26 Neonat Total Bilirubin Not Reportable 02/25/19 05:26 Neonat Direct Bilirubin Not Reportable 02/25/19 05:26 Neonat Indirect Bili Not Reportable 02/25/19 05:26 AST 156 U/L (17-59) H 02/25/19 05:26 ALT 148 U/L (<50) 02/25/19 05:26 Alkaline Phosphatase 62 U/L (38-126) 02/25/19 05:26 Troponin I < 0.012 ng/mL 02/19/19 14:06 Total Protein 5.0 g/dL (6.3-8.2) L 02/25/19 05:26 Albumin 2.5 g/dL (3.5-5.0) L 02/25/19 05:26 Triglycerides 80 mg/dL (<150) 02/23/19 07:04 Lipase 149.8 U/L (23-300) 02/13/19 16:04 EGFR Cancelled 02/23/19 05:58 Urine Color YELLOW 02/23/19 00:25 Urine Appearance CLEAR 02/23/19 00:25 Urine pH 7.0 (5.0-9.0) 02/23/19 00:25 Ur Specific Borger 1.018 02/23/19 00:25 Urine Protein 30 mg/dL (NEGATIVE) H 02/23/19 00:25 Urine Glucose (UA) NEGATIVE mg/dL (NEGATIVE) 02/23/19 00:25 Urine Ketones NEGATIVE mg/dL (NEGATIVE) 02/23/19 00:25 Urine Blood NEGATIVE (NEGATIVE) 02/23/19 00:25 Urine Nitrite NEGATIVE (NEGATIVE) 02/23/19 00:25 Urine Nitrite (Reflex) NEGATIVE (NEGATIVE) 02/13/19 16:04 Urine Bilirubin NEGATIVE (NEGATIVE) 02/23/19 00:25 Urine Urobilinogen NEGATIVE mg/dL (<2.0) 02/23/19 00:25 Ur Leukocyte Esterase NEGATIVE (NEGATIVE) 02/23/19 00:25 Leukocyte Esterase Rfl NEGATIVE (NEGATIVE) 02/13/19 16:04 Urine WBC (Auto) 1 /HPF 02/23/19 00:25 Urine RBC (Auto) 0 /HPF 02/23/19 00:25 Urine Bacteria (Auto) TRACE /HPF 02/22/19 14:00 Urine WBC (Reflex) 3 /HPF 02/13/19 16:04 Squamous Epi Cells Auto <1 /HPF 02/20/19 14:07 Amorphous Sediment Auto 1+ /HPF 02/22/19 14:00 Urine Mucus (Auto) RARE /LPF 02/23/19 00:25 Urine Ascorbic Acid NEGATIVE (NEGATIVE) 02/23/19 00:25 Slides for Path Review Cancelled 02/23/19 05:58 Blood Type O NEGATIVE 02/14/19 15:11 Blood Type Confirm O NEGATIVE 02/14/19 15:12 Antibody Screen NEGATIVE 02/14/19 15:11 Crossmatch See Detail 02/14/19 15:11 02/19/19 14:06 Troponin I < 0.012 Impressions: Abdomen Ultrasound 02/13/19 15:50 IMPRESSION: Cholelithiasis. Cannot exclude acute cholecystitis due to a positive sonographic Austin's. Hepatic steatosis. Chest X-Ray 02/13/19 18:00 IMPRESSION: NO ACUTE RADIOGRAPHIC FINDING IN THE CHEST. Cholangiogram 02/14/19 00:00 IMPRESSION: IMAGE(S) OBTAINED DURING PROCEDURE. Fluoroscopy 02/14/19 00:00 IMPRESSION: Please see combined report for performance of procedure and radiologic supervision and interpretation. KUB X-Ray 02/14/19 19:05 IMPRESSION: Postsurgical changes. NG tube is coiled in the left upper quadrant most likely stomach. Gas pattern is nonspecific. Abdomen/Pelvis CT 02/20/19 00:00 IMPRESSION: Recent cholecystectomy. Very small amount of air and fluid are present in the gallbladder fossa. No evidence of focal abscess. There is free fluid in the left lateral gutter. Largest transverse diameter is 2.0 cm. This extends approximately 8 cm cranial caudally. Small bilateral pleural effusions and basilar atelectasis. Chest X-Ray 02/20/19 00:00 IMPRESSION: Basilar atelectasis and small effusions. Suspect small amount of pneumoperitoneum probably related to recent surgery. Venous Doppler Study 02/20/19 00:00 IMPRESSION: NO EVIDENCE DVT OR SVT IN EITHER LEG. Guidance Fluoroscopy 02/21/19 00:00 IMPRESSION: SUCCESSFUL PLACEMENT OF A 5 FR DUAL LUMEN 48 CM PICC IN THE LEFT BASILIC VEIN. Interventional Vascular Procedure 02/21/19 00:00 IMPRESSION: SUCCESSFUL PLACEMENT OF A 5 FR DUAL LUMEN 48 CM PICC IN THE LEFT BASILIC VEIN. Acute Abdomen Series 02/21/19 06:00 IMPRESSION: Probable postoperative ileus. Minimal free air remains in the left upper quadrant. PICC Line Insertion 02/21/19 07:00 IMPRESSION: SUCCESSFUL PLACEMENT OF A 5 FR DUAL LUMEN 48 CM PICC IN THE LEFT BASILIC VEIN. Abdomen/Pelvis CT 02/22/19 00:00 IMPRESSION: 1. Status post cholecystectomy and hepaticojejunostomy. The distended air-filled structure the gallbladder fossa on image 31 of series 2 is presumed to represent a loop of bowel. There is a trace amount of gas and fluid in the gallbladder fossa and no drainable fluid collection. 2. The loculated fluid collection that extends along left paracolic gutter has increased from the prior CT and it measures up to 3.8 cm in transverse diameter compared to 2.1 cm. 3. Bilateral pleural effusions with areas of consolidation in the lower lobes that could represent atelectasis or pneumonia. Correlation with clinical findings is recommended. Retroperitoneal Abscess Drainage 02/22/19 00:00 IMPRESSION: SUCCESSFUL ULTRASOUND-GUIDED PLACEMENT OF A 10 MOHAWK ALL-PURPOSE DRAINAGE CATHETER INTO THE INTRA-ABDOMINAL FLUID COLLECTION IN THE LEFT HEMIABDOMEN. APPROXIMATELY 120 ML OF VISCOUS FLUID WAS ASPIRATED FROM THE COLLECTION AND SUBMITTED FOR ANALYSIS.
[2019-02-25] MEDS: GLYCERIN (ADULT) SUPP.RECT PR SCH (09:14)
[2019-02-25] MEDS: NORMAL SALINE 10 ML SDV (SCHEDULED) IV SCH (09:14)
[2019-02-25] MEDS ORDERED: FAT EMULSIONS 250 ML IV SCH (10:00)
[2019-02-25 11:18] VITALS: BP 126/82
== END 2019-02-25 11:35 | disposition home or self-care (01) | DRG 409 ==
LOC: ER 15:06 → EH 18:12 → INTOOBSV 18:12 → 4S 20:26 → ICU 02-14 18:20 → 4S 02-14 20:37 → EEVIPCON 02-15 12:05 → OBSVTOIN 02-15 12:05 → 4S 02-15 12:42
PROVIDERS: ADMIT Surgery; ATTEND Surgery
PROC: 0FT40ZZ Resection of Gallbladder, Open Approach (ICD-10-PCS; 2019-02-14)
PROC: BF001ZZ Plain Radiography of Bile Ducts using Low Osmolar Contrast (ICD-10-PCS; 2019-02-14)
PROC: 0F1 Hepatobiliary System and Pancreas, Bypass (ICD-10-PCS; principal; 2019-02-14 10:45)
PROC: 02HV33Z Insertion of Infusion Device into Superior Vena Cava, Percutaneous Approach (ICD-10-PCS; 2019-02-21)
PROC: 3E0336Z Introduction of Nutritional Substance into Peripheral Vein, Percutaneous Approach (ICD-10-PCS; 2019-02-21)
DX: K80.00 Calculus of gallbladder with acute cholecystitis without obstruction (principal); K91.71 Accidental puncture and laceration of a digestive system organ or structure during a digestive system procedure; S36.13XA Injury of bile duct, initial encounter; I10 Essential (primary) hypertension; Y83.8 Other surgical procedures as the cause of abnormal reaction of the patient, or of later complication, without mention of misadventure at the time of the procedure; Y92.234 Operating room of hospital as the place of occurrence of the external cause; M10.9 Gout, unspecified; R50.9 Fever, unspecified; Z88.0 Allergy status to penicillin; Z53.31 Laparoscopic surgical procedure converted to open procedure
CPT/HCPCS: 00790; 36415; 36569; 49406; 71045; 71046; 74018; 74022; 74176; 74300; 76705; 76937; 77001; 80053; 81001; 82962; 83690; 84100; 84478; 84484; 85025; 85027; 85610; 86850; 86900; 86901; 86920; 87040; 87070; 87075; 87077; 87086; 87186; 87205; 88304; 88341; 88342; 93005; 93010; 93970; 94799; 99285; 99291; C1729; C1892; C9250; G0378; J0131; J0744; J1100; J1170; J1642; J1650; J1885; J1940; J2185; J2250; J2270; J2405; J2704; J2710; J2765; J3010; J3480; J3490; J7030; J7121; S0028; S0119

== ENCOUNTER → 2019-03-06 | Outpatient (CLI) | payer BC ==
--- NOTE | 2019-03-06 16:20 | RADIOLOGY REPORT (SQ) ---
EXAM DESCRIPTION: NM HIDA SCAN; NM SPECT LIVER COMPLETED DATE/TIME: 03/06/2019 3:38 pm; 03/06/2019 3:46 pm REASON FOR STUDY: S36.13XA INJURY OF BILE DUCT, INITIAL ENCOUNTER, S/P BILE LEAK; HEPATIC DUCT INJUR Y S36.13XA INJURY OF BILE DUCT, INITIAL ENCOUNTER COMPARISON: None. RADIONUCLIDE AND DOSE: DOSAGE RADIONUCLIDE: 5.48 millicuries Tc99m Mebrofenin. The route of agent administration: Intravenous TECHNIQUE: Incorporated into the Technique. RADIATION DOSE: N/A. LIMITATIONS: None. FINDINGS: The patient is a 53 year-old with a history of iatrogenic injury to the right hepatic duct during a cholecystectomy that required creation of a hepaticojejunostomy. The patient was positioned supine and dynamic acquisitions of the abdomen at a rate of 2 frames per m inute for 60 minutes were obtained; on the dynamic images there is prompt hepatic uptake and excretio n of the radiotracer. Based on the dynamic images, the right hepatic duct appears to drain into the hepaticojejunostomy - the drainage of the left hepatic duct is separate and there is suspected reflux into the gastric lumen. There is no activity within the surgical drain or evidence of a leak based on the dynamic images. Static images of the abdomen were then obtained in the anterior and lateral projection that confirmed the findings on the dynamic images. After that, SPECT images of the abdomen over obtained, however due to star artifact the images were nondiagnostic. As a result, static images in the anterior and l ateral projections were repeated at 120 minutes post injection and again no evidence of a leak was id entified. The surgical drain was then clamped and after 30 minutes static images in the AP, lateral common obli que projections were repeated ; no activity was noted within the drain and no evidence of a leak was identified. IMPRESSION: No evidence of a biliary leak as detailed above. TECHNICAL DOCUMENTATION: JOB ID: [id number] [employer]- All Rights Reserved Reading location - IP/workstation name: [email or web address]
== END ==
LOC: RAD 12:21
PROVIDERS: ATTEND Surgery
DX: S36.13XA Injury of bile duct, initial encounter (principal); X58.XXXA Exposure to other specified factors, initial encounter
CPT/HCPCS: 78226; 78205; A9537; Q9969

== ENCOUNTER 2019-05-02 19:47 | Emergency (ER) | payer BC ==
[2019-05-02] MEDS ORDERED: NORMAL SALINE 1000 ML 1,000 ML IV ONE (21:21)
[2019-05-02] MEDS ORDERED: ONDANSETRON HCL INJ/PF 4 MG/2 ML SDV IV ONE (21:21)
--- NOTE | 2019-05-02 21:23 | ER Document Report ---
ED Medical Screen (RME) - General Stated Complaint: COLD SWEAT,HEADACHE Time Seen by Provider: 05/02/19 21:15 Primary Care Provider: ALESSIA RILEY MD [Primary Care Provider] - Follow up as needed Information source: Patient Notes: Patient presents complaining of chills nausea vomiting and abdominal discomfort in which she feels bloated. Patient had a cholecystectomy in February of last year performed in which they nicked his liver. Patient has had a JENNIFER bulb collect drainage from the wound ever since the procedure. Patient states that 2 days ago he had a transhepatic cholangiogram performed out of [place] a ttempting to see where he may be having a leak. Patient denies any fever although has been taking Motrin for pain relief at home. I have greeted and performed a rapid initial assessment of this patient. A comprehensive ED assessment and evaluation of the patient, analysis of test results and completion of the medical decision making process will be conducted by additional ED providers. TRAVEL OUTSIDE OF THE [place] IN LAST 30 DAYS: No - Related Data Allergies/Adverse Reactions: Penicillins Allergy (Verified 02/13/19 15:36) Past Medical History - Past Medical History Cardiac Medical History: Reports: Hx Hypertension Physical Exam - Vital signs Vitals: Temp Pulse Resp BP Pulse Ox 99.0 F 104 H 20 139/75 H 97 05/02/19 19:54 05/02/19 19:54 05/02/19 19:54 05/02/19 19:54 05/02/19 19:54 - Abdominal Tenderness: Tender - Generalized abdominal tenderness, right lateral side tenderness Course - Vital Signs Vital signs: Temp Pulse Resp BP Pulse Ox 99.0 F 104 H 20 139/75 H 97 05/02/19 19:54 05/02/19 19:54 05/02/19 19:54 05/02/19 19:54 05/02/19 19:54 Doctor's Discharge - Discharge Referrals: ALESSIA RILEY MD [Primary Care Provider] - Follow up as needed
[2019-05-02 22:07] LABS: ABSOLUTE EOSINOPHILS # (AUTO) 0.1 10^3/uL (0.0-0.6); ABSOLUTE LYMPHOCYTES (AUTO) 0.9 10^3/uL (0.5-4.7); ABSOLUTE MONOCYTES (AUTO) 1.1 10^3/uL (0.1-1.4); ABSOLUTE NEUT (AUTO) 9.1 10^3/uL (1.7-8.2); BASOPHILS % (AUTO) 0.2 % (0-2); EOSINOPHILS % (AUTO) 0.7 % (0-6); HEMOGLOBIN 12.2 g/dL (13.5-17.0); LYMPHOCYTES % (AUTO) 8.1 % (13-45); MEAN CORPUSCULAR HEMOGLOBIN 28.7 pg (27.0-33.4); MEAN CORPUSCULAR HGB CONC 33.8 g/dL (32.0-36.0); MEAN CORPUSCULAR VOLUME 85 fl (80-97); MONOCYTES % (AUTO) 9.5 % (3-13); PLATELET COUNT 231 10^3/uL (150-450); RED BLOOD COUNT 4.24 10^6/uL (4.35-5.55); RED CELL DISTRIBUTION WIDTH 14.8 % (11.5-14.0); SEGMENTED NEUTROPHILS % (AUTO) 81.5 % (42-78); TOTAL CELLS COUNTED % (AUTO) 100 %; WHITE BLOOD COUNT 11.2 10^3/uL (4.0-10.5)
[2019-05-02 22:19] LABS: APPEARANCE,URINE SLIGHTLY-CLOUDY; BILIRUBIN,URINE NEGATIVE (NEGATIVE); GLUCOSE, URINE NEGATIVE (NEGATIVE); KETONES,URINE NEGATIVE (NEGATIVE); LEUKOCYTE ESTERASE,URINE NEGATIVE (NEGATIVE); NITRITE,URINE NEGATIVE (NEGATIVE); PROTEIN,URINE 100 mg/dL (NEGATIVE); UROBILINOGEN,URINE NEGATIVE mg/dL (<2.0)
[2019-05-02 22:21] LABS: COLOR,URINE YELLOW
[2019-05-02 22:26] LABS: ALBUMIN 3.6 g/dL (3.5-5.0); ALKALINE PHOSPHATASE 61 U/L (38-126); ANION GAP 9 (5-19); ASPARTATE AMINO TRANSFERASE 33 U/L (17-59); BILIRUBIN,DIRECT 0.3 mg/dL (0.0-0.4); BILIRUBIN,TOTAL 0.6 mg/dL (0.2-1.3); BLOOD UREA NITROGEN 14 mg/dL (7-20); CALCIUM 9.4 mg/dL (8.4-10.2); CARBON DIOXIDE 25 mmol/L (22-30); CHLORIDE 101 mmol/L (98-107); GLUCOSE 134 mg/dL (75-110); TOTAL PROTEIN 6.6 g/dL (6.3-8.2)
[2019-05-03] MEDS ORDERED: ONDANSETRON HCL INJ/PF 4 MG/2 ML SDV IV ONE (01:15)
--- NOTE | 2019-05-03 01:35 | ER Document Report ---
ED General - General Chief Complaint: Post Surgical Pain Stated Complaint: COLD SWEAT,HEADACHE Time Seen by Provider: 05/02/19 21:15 Primary Care Provider: ALESSIA RILEY MD [Primary Care Provider] - Follow up as needed TRAVEL OUTSIDE OF THE [place] IN LAST 30 DAYS: No - HPI Notes: 53-year-old male presenting with a chief complaint of right upper quadrant abdominal pain, nausea, chills and general malaise which started earlier this evening. He feels a bit better now. Patient had a cholecystectomy in February of last year performed in which they nicked his liver. Patient has had a JENNIFER bulb collect drainage from the wound ever since the procedure. Patient states that 2 days ago he had a transhepatic cholangiogram performed out of [place] attempting to see where he may be having a leak. Patient was told that the study was indeterminate. He is supposed to follow-up with his general surgeon Dr. Riley next week. Patient denies any fever although has been taking Mo daily for pain relief at home. Patient denies chest pain. He denies any known cardiac history. Pertinent prior history: -Hypertension -Gout No family history of CAD. Patient is not diabetic. He has no history of hyperlipidemia. He is a non-smoker. He has no history of thromboembolic disease. - Related Data Allergies/Adverse Reactions: Penicillins Allergy (Verified 02/13/19 15:36) Home Medications: lisinopril 5 mg qday. gout med Past Medical History - General Information source: Patient, Friend - Social History Smoking Status: Never Smoker Family History: Other - Daughter with a history of gallstones. Patient has suicidal ideation: No Patient has homicidal ideation: No - Past Medical History Cardiac Medical History: Reports: Hx Hypertension Past Surgical History: Reports: Hx Abdominal Surgery, Hx Cholecystectomy Review of Systems - Review of Systems Notes: Constitutional: Negative for fever. HENT: Negative for sore throat. Eyes: Negative for visual changes. Cardiovascular: Negative for chest pain. Respiratory: Negative for shortness of breath. Gastrointestinal: As per HPI. Genitourinary: Negative for dysuria. Musculoskeletal: Negative for back pain. Skin: Negative for rash. Neurological: Negative for headaches, weakness or numbness. 10 point ROS negative except as marked above and in HPI. Physical Exam - Vital signs Vitals: Temp Pulse Resp BP Pulse Ox 99.0 F 104 H 20 139/75 H 97 01/23/20 19:54 05/02/19 19:54 05/02/19 19:54 05/02/19 19:54 05/02/19 19:54 - Notes Notes: GENERAL: Well-developed well-nourished appearing mildly uncomfortable. SKIN: Good turgor no rashes. HEAD: Normocephalic atraumatic. EYES: PERRLA. EOMI. Conjunctivae and sclerae clear. EARS: CANALS AND TMS CLEAR. NOSE: CLEAR. MOUTH: Moist mucosa. Good dentition. No stridor or edema. No drooling. NECK: Supple. No masses or thyromegaly. No adenopathy. Carotids 2+ without bruits. No JVD. BACK: Symmetrical without tenderness. CHEST: Respirations unlabored. Breath sounds clear and symmetrical. HEART: Regular rhythm. No murmur gallop or rub. ABDOMEN: Patient has a cholecystostomy tube present in right upper quadrant. Mild tenderness in right upper quadrant. No redness or drainage. Soft without masses, organomegaly or rebound. Bowel sounds normally active. No bruits. GENITALIA: Deferred. EXTREMITIES: No edema. No calf tenderness. Cap refill less than 1.5 seconds. Dorsalis pedis and posterior tibial pulses 3+ and symmetrical. NEUROLOGICAL: GCS 15. Alert and oriented x3. Normal gait. Fluent speech. Cranial nerves II through XII intact. Sensorimotor and cerebellar normal. Normal tone. PSYCHIATRIC: Appropriate affect. Course - Re-evaluation Re-evalutation: 05/03/19 01:36 Comprehensive metabolic profile, CBC and serum lipase level are all normal. EKG shows no acute changes. Troponin level pending. I requested a CT abdomen/pelvis with IV contrast. Patient is comfortable this time will remain n.p.o. with infusion of normal saline. 05/03/19 03:03 CT showed no significant new findings per radiologist. His EKG showed no acute changes troponin is normal. Patient complains of some mild discomfort right flank area aggravated by movement. I think he is stable for outpatient follow- up with his primary care physician and surgeon. - Vital Signs Vital signs: Temp Pulse Resp BP Pulse Ox 99.7 F 85 18 126/71 H 98 05/03/19 02:53 05/02/19 23:03 05/02/19 23:03 05/02/19 23:03 05/02/19 23:03 - Laboratory Result Diagrams: 05/02/19 21:54 05/02/19 21:54 Laboratory results interpreted by me: 05/02/19 05/02/19 05/02/19 21:50 21:54 21:54 WBC 11.2 H RBC 4.24 L Hgb 12.2 L Hct 36.0 L RDW 14.8 H Lymph % (Auto) 8.1 L Absolute Neuts (auto) 9.1 H Seg Neutrophils % 81.5 H Sodium 135.0 L Glucose 134 H Urine Protein 100 H - EKG Interpretation by Me Additional EKG results interpreted by me: 05/03/19 01:37 Twelve-lead EKG obtained at 0132 hrs. reviewed contemporaneously by me demonstrating normal sinus rhythm rate 91. QRS axis is 68 degrees. Intervals are normal. No acute ST/T wave changes are appreciated. There is no prior tracing for comparison. Discharge - Discharge Clinical Impression: Nausea Abdominal pain Qualifiers: Abdominal location: right upper quadrant Qualified Code(s): R10.11 - Right upper quadrant pain Condition: Stable Disposition: HOME, SELF-CARE Instructions: Abdominal Pain ([facility]) Prescriptions: Naproxen 500 mg PO BID PRN 7 Days #14 tablet PRN Reason: Ondansetron [Zofran Odt 4 mg Tablet] 1 - 2 tab PO Q4H PRN #15 tab.rapdis PRN Reason: For Nausea/Vomiting Referrals: ALESSIA RILEY MD [Primary Care Provider] - Follow up as needed
--- NOTE | 2019-05-03 02:16 | RADIOLOGY REPORT (SQ) ---
EXAM DESCRIPTION: CT ABDOMEN PELVIS WITH IV CONTRAST COMPLETED DATE/TME: 05/03/2019 01:28 CLINICAL HISTORY: 53 years, Male, ab pain.GB [id number].liver was nicked.[id number] ago COMPARISON: February 22, 2019 TECHNIQUE: Images stored on PACS. All CT scanners at this facility use dose modulation, iterative reconstruction, and/or weight based dosing when appropriate to reduce radiation dose to as low as reasonably achievable (ALARA). [facility]: Dose Right [facility]: CareDose [facility]: Dose Right [facility]: Teradose 4D [facility]: [employer] LIMITATIONS: None. FINDINGS: Right basilar atelectasis. The effusion seen previously are resolved. The heart is prominent but stable. No pericardial fluid. The liver is fatty infiltrated. This is similar to prior. Postsurgical change from cholecystectomy. A surgical drain remains in the gallbladder fossa. Gallbladder surgically absent. Pancreas is homogeneous. The spleen adrenals and kidneys appear grossly normal. The bowel is nonobstructed. Contrast within the colon. No high-grade obstruction. No free air. No free fluid. The aorta is nonaneurysmal. Visualized bones are unremarkable. IMPRESSION: Postsurgical change. No adverse change. A surgical drain remains within the gallbladder fossa TECHNICAL DOCUMENTATION: Quality ID # [id number]: Final reports with documentation of one or more dose reduction techniques (e.g., Automated exposure control, adjustment of the mA and/or kV according to patient size, use of iterative reconstruction technique) copyright 2010 [employer]- All Rights Reserved
[2019-05-03] MEDS ORDERED: NAPROXEN 375 MG TABLET PO ONE (03:15)
[2019-05-03] MEDS ORDERED: NAPROXEN 250 MG TABLET PO ONE (03:15)
[2019-05-03] MEDS ORDERED: NAPROXEN 375 MG TABLET ONE (03:30)
[2019-05-03 03:42] VITALS: BP 128/81
--- NOTE | 2019-05-03 06:55 | EKG REPORT ---
SEVERITY:- ABNORMAL ECG - SINUS RHYTHM BORDERLINE INFERIOR Q WAVES NONSPECIFICANTERIOR ST-T CHANGES UNCHANGED FROM 02/19/19 EKG : Confirmed by: Manuel Vega MD 03-May-2019 06:54:35
== END 2019-05-03 03:42 | disposition home or self-care (01) ==
LOC: ER 19:47
DX: R10.11 Right upper quadrant pain (principal); R11.0 Nausea; R68.83 Chills (without fever); R53.81 Other malaise; I10 Essential (primary) hypertension; Z90.49 Acquired absence of other specified parts of digestive tract; Z98.890 Other specified postprocedural states; Z88.0 Allergy status to penicillin; Z79.899 Other long term (current) drug therapy
CPT/HCPCS: 99284; 96361; 96374; 36415; 83690; 85025; 80053; 81001; 84484; 74177; 93005; 93010; J3490; J2405; J7030